=== PATIENT | male | born 1960 | race Caucasian/White ===

== ENCOUNTER 2016-09-13 06:59 | Day surgery (SDC) | payer BC ==
[2016-09-10 11:07] VITALS: BMI 23.8
[2016-09-13] MEDS ORDERED: MIDAZOLAM HCL 2 MG/2 ML SINGLE DOSE VIAL ONE ×2 (09:13→10:15)
[2016-09-13] MEDS ORDERED: ROPIVACAINE HCL 0.5% 30ML VIAL ONE (09:13)
[2016-09-13] MEDS ORDERED: PROPOFOL 20 ML ONE (10:15)
[2016-09-13] MEDS ORDERED: ceFAZolin SODIUM 1 GM VIAL ONE (10:23)
[2016-09-13] MEDS ORDERED: ONDANSETRON 4 MG/2 ML VIAL ONE (11:08)
[2016-09-13] MEDS ORDERED: DEXAMETHASONE SOD PHOSPHATE 4 MG/1 ML VIAL ONE (11:08)
[2016-09-13] MEDS ORDERED: oxyCODONE HCL 5 MG TABLET PO PRN (11:20)
[2016-09-13] MEDS ORDERED: LACTATED RINGERS SOLUTION 1,000 ML IV SCH (11:30)
[2016-09-13 13:12] VITALS: TEMP 98.3
[2016-09-13 13:13] VITALS: BP 121/71; PULSE 62
[2016-09-13] MEDS ORDERED: PROMETHAZINE HCL 25 MG/1 ML VIAL IVPUSH PRN (13:47)
[2016-09-13] MEDS ORDERED: ONDANSETRON 4 MG/2 ML VIAL IVPUSH PRN (13:47)
--- NOTE | 2016-09-16 06:02 | OP ---
DATE OF OPERATION: 09/13/2016 SURGEON: Kaiden Peñaloza M.D. [employer] ARCHITECT: Latrell Fairchild PREOPERATIVE DIAGNOSIS: 1. Right shoulder rotator cuff tear. 2. Right shoulder impingement syndrome. 3. Right shoulder acromioclavicular joint disease. 4. Right shoulder superior labral anterior posterior synovitis. POSTOPERATIVE DIAGNOSIS: 1. Right shoulder rotator cuff tear. 2. Right shoulder impingement syndrome. 3. Right shoulder acromioclavicular joint disease. 4. Right shoulder superior labral anterior posterior synovitis. PROCEDURE: 1. Right shoulder arthroscopy with arthroscopic rotator cuff repair. 2. Right shoulder arthroscopy with subacromial decompression. 3. Right shoulder arthroscopy resection distal clavicle acromioclavicular joint. 4. Right shoulder arthroscopy debridement/major. CPT CODES: 46931, 61957, 25063, 90272. FINDINGS: 1. Partial long head biceps tear 10%. 2. Full thickness rotator cuff tear anterior supraspinatus. 3. Central grade 2 cartilage glenoid. 4. One to two cartilage injury humerus anterior medial. 5. Thicken scar subacromial space. 6. Type 2 acromion with anterolateral spurring. 7. Inferior spur, mild acromioclavicular joint disease. Repair of type 2 mattress sutures were placed into the supraspinatus and secured to bleeding bone bed using the opos technique. PROCEDURE: Informed consent was obtained. The patient was taken to the operating room where the upper extremity was prepped and draped in a sterile fashion. The shoulder was manipulated for a full range of motion. Posterior incision portal was made and directed to glenohumeral joint. Under direct visualization, an anterior incision and portal was made. Extensive synovitis, as well as chondral injuries throughout the glenohumeral joint were dbrided and removed. Any identified labral injuries, including superior labral tear, anterior and posterior, and anterior labrum torn portions were removed as well. Rotator cuff was visualized and noted to have full-thickness tear. The edges were debrided. Posterior incision portal was redirected to subacromial space where a lateral incision portal was made. Excessive and thickened scar tissue noted throughout the subacromial space, including bursal and scar tissue, were removed. The type 2 acromion was converted into a flattened type 1 using a thomas for subacromial decompression. Distal inferior spur at the distal clavicle was also dbrided with the use of accessory portal in the AC joint. The edges of the rotator cuff were identified. Sutures were placed into the rotator cuff and secured using anchors throughout the greater tuberosity. Prior to securing, a bleeding bed was made using a small thomas, creating a bleeding surface of the rotator cuff insertion. The shoulder was then drained. A single suture as placed on all portals and a sterile dressing was placed. The patient was transferred to the recovery room without complication. KAIDEN PEÑALOZA M.D. [id number] MTDD
--- NOTE | 2016-09-16 13:25 | PATH ---
Surgical Pathology Report Patient Name: VANESA COTO Med. Rec. #: [id number] /Age/Gender: 1960 (Age: 55) / M Account: [id number] Location: [facility] AMBULATORY Taken: 09/13/2016 Received: 09/13/2016 Reported: 09/16/2016 Physicians: Kaiden Gould M.D. Specimen(s) Received RIGHT SHOULDER SHAVING Clinical History Right rotator cuff tear Final Diagnosis RIGHT SHOULDER, ARTHROSCOPIC SHAVING: PORTIONS OF SYNOVIUM, CARTILAGE, SKELETAL MUSCLE AND BONE CONSISTENT WITH ARTHROSCOPIC SHAVINGS. Electronically Signed Theron Martinez M.D. Gross Description Received in formalin, labeled "right shoulder shavings," is a 4.0 x 2.8 x 0.3 cm. aggregate of rodriguez-yellow soft tissue fragments. A inbound sales representative portion is submitted in one cassette. /09/13/201609/13/2016
== END 2016-09-13 12:55 | disposition home or self-care (01) ==
LOC: FASU 06:59
PROVIDERS: ATTEND Orthopaedic Surgery
PROC: 0RNJ4ZZ Release Right Shoulder Joint, Percutaneous Endoscopic Approach (ICD-10-PCS; 2016-09-13)
PROC: 0PB94ZZ Excision of Right Clavicle, Percutaneous Endoscopic Approach (ICD-10-PCS; 2016-09-13)
PROC: 0RBJ4ZZ Excision of Right Shoulder Joint, Percutaneous Endoscopic Approach (ICD-10-PCS; 2016-09-13)
PROC: 0LB14ZZ Excision of Right Shoulder Tendon, Percutaneous Endoscopic Approach (ICD-10-PCS; principal; 2016-09-13 09:00)
DX: M75.101 Unspecified rotator cuff tear or rupture of right shoulder, not specified as traumatic (principal); M75.41 Impingement syndrome of right shoulder; M19.011 Primary osteoarthritis, right shoulder; M65.811 Other synovitis and tenosynovitis, right shoulder
CPT/HCPCS: 88304-TC; 94760

== ENCOUNTER 2016-10-16 11:52 | Inpatient (IN) | payer BC ==
[2016-10-16 11:58] VITALS: BMI 23.8
--- NOTE | 2016-10-16 12:10 | PDOC ---
History of Present Illness - General Chief Complaint: Pain, Acute Stated Complaint: LEFT RIB CAGE PAIN Time Seen by Provider: 10/16/16 12:02 - History of Present Illness Initial Comments: 10/16/16 16:57 Chief complaint: Chest pain History of present illness: Patient complains of left lateral chest pain since Friday, which appears to be worsening. The pain is pleuritic in nature, becoming more severe with deep inspiration. There is no sensitivity to the ribs or chest wall in no trauma or other injury. He has had no URI symptoms or cough , suggestive of a possible respiratory infection Review of systems: As above. In addition, no abdominal pain, nausea, vomiting, diarrhea, hematemesis, melena, bloody stool, headache, sore throat, URI symptoms , cough, or shortness of breath. Remainder systems reviewed and found to be negative. No recent swelling or pain in the calves or thighs, no recent travel, and no leg trauma Past medical history: Recent rotator cuff surgery 5 weeks ago, undergoing rehabilitation. General anesthesia at that time. Questionable DVT of the left leg approximately one year ago, treated with aspirin only.,, Uses eyedrops. Elevated cholesterol, on Zocor Social history: No tobacco alcohol or nonprescription drugs. Limited by recent rotator cuff surgery but otherwise active Family history: Reviewed and noncontributory including blood clots, CVA, [place], early coronary artery disease, or cancer Physical exam: Alert and oriented 3, well-developed well-nourished, moderate distress due to pain with inspiration left lateral lower chest. Afebrile, vital signs normal with O2 sat of 95% HEENT clear Neck supple without bruit mass or nodes Chest clear to P&A with full breath sounds bilaterally, no dullness to percussion, however there is splinting with deep inspiration due to pain on the left No chest wall deformity or tenderness CV S1 and S2 distant without murmur rub or gallop pulses full and symmetric no JVD or edema Abdomen nondistended, bowel sounds normal, soft without mass tenderness or organomegaly Extremities no CCE there is no posterior calf swelling or tenderness. There is no superficial venous distention. Skin clear, no rash, adequate turgor and wet mucous membranes Neurological intact Impression: Pleuritic chest pain, possible pneumonia or bronchitis, possible musculoskeletal, possible pulmonary embolus Plan: Labs and x-ray, further evaluation depending on results Past History - Past Medical History Allergies/Adverse Reactions: Allergies Allergy/AdvReac Type Severity Reaction Status Date / Time No Known Allergies Allergy Verified 10/16/16 12:07 Home Medications: Ambulatory Orders Brimonidine Tartrate [Alphagan 0.15% -] 1 drop OS BID 09/10/16 Dorzolamide HCl/Timolol Maleat [Cosopt Eye Drops] 1 drop OS BID 09/10/16 Simvastatin [Zocor -] 40 mg PO HS 09/10/16 Anemia: No Asthma: No Cancer: No Cardiac Disorders: No CVA: No COPD: No CHF: No Dementia: No Diabetes: No GI Disorders: No Disorders: No HTN: No Hypercholesterolemia: Yes Liver Disease: No Seizures: No Thyroid Disease: No - Surgical History Abdominal Surgery: Yes (Bilateral Inguinal Hernia Repair) Appendectomy: No Cardiac Surgery: No Cholecystectomy: No Lung Surgery: No Neurologic Surgery: No Orthopedic Surgery: No - Psycho/Social/Smoking Cessation Hx Suicidal Ideation: No Smoking History: Never smoked Information on smoking cessation initiated: No Hx Alcohol Use: Yes (SOCIALLY) Drug/Substance Use Hx: No Substance Use Type: None Hx Substance Use Treatment: No *Physical Exam - Vital Signs Last Vital Signs Temp Pulse Resp BP Pulse Ox 99.8 F H 121 H 20 141/92 95 10/16/16 11:55 10/16/16 11:55 10/16/16 11:55 10/16/16 11:55 10/16/16 11:55 ED Treatment Course - LABORATORY CBC & Chemistry Diagram: 10/16/16 12:26 10/16/16 12:20 Medical Decision Making - Medical Decision Making 10/16/16 15:41 CTA reveals pulmonary embolus, consolidation, and effusion at the left base. Rectal exam was performed. No masses or tenderness. Stool medium brown, sent for guaiac. 10/16/16 16:56 Stool is guaiac negative. Spoke with the hospitalist. To admit to telemetry at [facility] Patient request initiated. *DC/Admit/Observation/Transfer Diagnosis at time of Disposition: Pulmonary embolus with infarction - Discharge Dispostion Admit: Yes
[2016-10-16 12:30] LABS: EOSINOPHIL 0.1 % (0-4.5)
[2016-10-16 12:35] LABS: BASOPHIL 3.2 % (0-2.0); MCH 31.2 pg (25.7-33.7); MCHC 34.2 g/dl (32.0-35.9); MEAN CELL VOLUME 91.2 fl (80-96); NEUTROPHILS 70.3 % (42.8-82.8); PLATELET COUNT 241 K/MM3 (134-434); RDW 12.6 % (11.9-15.9); WHITE BLOOD COUNT 9.7 K/mm3 (4.0-10.8)
[2016-10-16] MEDS ORDERED: SODIUM CHLORIDE 1,000 ML IV STA (12:49)
[2016-10-16 12:52] LABS: CPK(DFH) 42 IU/L (38-174)
[2016-10-16 12:53] LABS: ALBUMIN 3.8 g/dl (3.5-5.0); ALK PHOS 50 U/L (32-92); ANION GAP 9 (8-16); BILIRUBIN,TOTAL 0.7 mg/dl (0.2-1.0); CALCIUM 9.4 mg/dl (8.4-10.2); CO2 26 mmol/L (22-28); CREATININE 0.9 mg/dl (0.6-1.3); GLUCOSE,RANDOM 115 mg/dl (74-106); SGOT/AST 17 U/L (10-42); SGPT/ALT 21 U/L (10-40); TOT PROT 6.7 g/dl (6.4-8.3)
[2016-10-16 14:05] LABS: TROPONIN I (DFP) < 0.03 ng/ml (0.03-0.50)
--- NOTE | 2016-10-16 14:25 | EKG ---
Test Reason : Blood Pressure : / mmHG Vent. Rate : 119 BPM Atrial Rate : 119 BPM P-R Int : 162 ms QRS Dur : 074 ms QT Int : 308 ms P-R-T Axes : 026 002 028 degrees QTc Int : 433 ms SINUS TACHYCARDIA POSSIBLE LEFT ATRIAL ENLARGEMENT BORDERLINE ECG NO PREVIOUS ECGS AVAILABLE Confirmed by SHANIQUE WARNER MD ([id number]) on 10/16/2016 2:25:16 PM Referred By: JARRETT ZAVALA Confirmed By:SHANIQUE WARNER MD
[2016-10-16] MEDS ORDERED: HEPARIN NA (PORCINE) 5,000 UNITS/ML 1ML VIAL IVPUSH PRN (15:30)
[2016-10-16] MEDS ORDERED: HEPARIN INFUSION - 500 ML IVPB ONE ×2 (15:36→20:31)
[2016-10-16] MEDS: HEPARIN INFUSION - 500 ML IVPB SCH (15:50)
[2016-10-16] MEDS ORDERED: HEPARIN NA (PORCINE) 5,000 UNITS/ML 1ML VIAL IVPUSH ONE (16:02)
[2016-10-16 17:15] LABS: ARTERIAL BLOOD GAS pH 7.42 (7.35-7.45)
[2016-10-16 17:16] LABS: ALLENS TEST POSITIVE; ART PUNCT SITE LEFT RADIAL; ARTERIAL BLD GAS O2 SATURATION 94.2 % (90-98.9); ARTERIAL BLOOD GAS BASE EXCESS 0.5 meq/l (-2-2); ARTERIAL BLOOD GAS HCO3 24.4 meq/L (22-26); METHEMOGLOBIN 0.5 % (0.4-1.5); PT. ON O2? NO
[2016-10-16 17:17] LABS: ARTERIAL BLOOD GAS PO2 68.1 mmHg (80-100); TYPE OF O2 ROOM AIR
--- NOTE | 2016-10-16 20:53 | PN ---
<Chapo Valenzuela - Last Filed: 10/16/16 20:52> Teaching Attending Note Name of Resident: Yogi Carrillo ATTENDING PHYSICIAN STATEMENT I saw and evaluated the patient. I reviewed the resident's note and discussed the case with the resident. I agree with the resident's findings and plan as documented. SUBJECTIVE: OBJECTIVE: ASSESSMENT AND PLAN: <Pam Mar - Last Filed: 10/16/16 23:34> Teaching Attending Note ATTENDING PHYSICIAN STATEMENT I saw and evaluated the patient. I reviewed the resident's note and discussed the case with the resident. I agree with the resident's findings and plan as documented. SUBJECTIVE: 56 yo M with a PMHx of rotator cuff surgery 5 weeks ago, one DVT of L leg possibly 1 year ago, HLD presents with chest pain on L side and pain with inspiration. Patient also endorses head pain when he sneezes, coughs and during deep inspiration. Patient also endorses fever of 100 degrees at home. OBJECTIVE: Last Vital Signs Temp Pulse Resp BP Pulse Ox 98.1 F 108 H 24 132/87 97 10/16/16 17:55 10/16/16 19:36 10/16/16 19:36 10/16/16 19:36 10/16/16 19:36 GENERAL: Awake, alert, and fully oriented, in no acute distress HEENT: Atraumatic. PERRLA, EOMI. Moist mucosa. No JVD LUNGS: No distress, speaks full sentences, decreased breath sounds L base. HEART: Regular rate and rhythm, normal S1 and S2, no murmurs, rubs or gallops, peripheral pulses normal and equal bilaterally. ABDOMEN: Soft, nontender, normoactive bowel sounds. No guarding, no rebound. No masses EXTREMITIES: Sling on R arm, no edema. No clubbing or Cyanosis. NEUROLOGICAL: Cranial nerves II through XII grossly intact. Normal speech, normal gait, no focal sensorimotor deficits SKIN: Warm, Dry, normal turgor, no rashes or lesions noted. CBCD WBC 9.7 K/mm3 (4.0-10.8) 10/16/16 12:26 RBC 5.04 M/mm3 (4.00-5.60) 10/16/16 12:26 Hgb 15.7 GM/dl (11.7-16.9) 10/16/16 12:26 Hct 45.9 % (35.4-49) 10/16/16 12:26 MCV 91.2 fl (80-96) 10/16/16 12:26 MCHC 34.2 g/dl (32.0-35.9) 10/16/16 12:26 RDW 12.6 % (11.9-15.9) 10/16/16 12:26 Plt Count 241 K/MM3 (134-434) 10/16/16 12:26 MPV 8.0 fl (7.5-11.1) 10/16/16 12:26 CMP Sodium 138 mmol/L (136-145) 10/16/16 12:20 Potassium 4.4 mmol/L (3.5-5.1) 10/16/16 12:20 Chloride 103 mmol/L (98-107) 10/16/16 12:20 Carbon Dioxide 26 mmol/L (22-28) 10/16/16 12:20 Anion Gap 9 (8-16) 10/16/16 12:20 BUN 13 mg/dl (7-18) 10/16/16 12:20 Creatinine 0.9 mg/dl (0.6-1.3) 10/16/16 12:20 Creat Clearance w eGFR > 60 (>60) 10/16/16 12:20 Calcium 9.4 mg/dl (8.4-10.2) 10/16/16 12:20 Total Bilirubin 0.7 mg/dl (0.2-1.0) 10/16/16 12:20 AST 17 U/L (10-42) 10/16/16 12:20 ALT 21 U/L (10-40) 10/16/16 12:20 Alkaline Phosphatase 50 U/L (32-92) 10/16/16 12:20 Total Protein 6.7 g/dl (6.4-8.3) 10/16/16 12:20 Albumin 3.8 g/dl (3.5-5.0) 10/16/16 12:20 CTA Shows LL PE and LL consolidation ASSESSMENT AND PLAN: 56 yo M with a PMHx of rotator cuff surgery 5 weeks ago, one DVT of L leg possibly 1 year ago, HLD presents with L chest pain found to have a PE and LLL pneumonia. 1. ) PE -Heparin GTT -Bridge to coumadin -Once 6 weeks after treatment, consider studies for coagulopathy -Follow up PT, INR, PTT -Repeat CBC -Echo 2.) LLL pneumonia -Levaquin -Sputum culture 3.) HLD -Continue Zocor DVT ppx -On heparin GTT Documentation is prepared by Pam Mar acting as biomedical engineering director for Chapo Valenzuela D.O.
--- NOTE | 2016-10-16 21:39 | HP ---
CHIEF COMPLAINT: PCP: HISTORY OF PRESENT ILLNESS: 56 y/o M w/PMH of HLD, questionable DVT in L leg 1 year ago, glaucoma presents to ER with L lateral chest wall pain. Pt states pain started all of a sudden on Friday and has remained the same since. He took 8 aspirin yesterday to try and alleviate pain but did not help. He recently had R rotator cuff surgery done and was doing physical therapy for and thought he may have strained some muscles and felt that may have been the cause of his pain and did not seek help at the time. He states the pain is worse with laying down, deep inspiration, coughing, and sneezing. He also c/o labored breathing since Friday and reports a fever of 100 F yesterday. He has been more inactive lately after the shoulder surgery. He states he had DVT after hurting his ankle last year in swimming pool but was told he only needed aspirin. He reports his symptoms have improved mildly at this time. He denies N/V, light-headedness, dizziness, change in bowel movement, dysuria, abd pain. ER course was notable for: (1) CTA chest, CXR, heparin drip (2) (3) PAST MEDICAL HISTORY: Glaucoma, HLD PAST SURGICAL HISTORY: Cataract surgery, R rotator cuff repair, Ventral hernia repair Social History: Smoking: denies Alcohol: denies Drugs: denies Family History: Non-contributory family history Allergies No Known Allergies Allergy (Verified 10/16/16 12:07) HOME MEDICATIONS: Home Medications Medication Instructions Recorded Brimonidine Tartrate [Alphagan 1 drop OS BID 09/10/16 0.15% -] Dorzolamide HCl/Timolol Maleat 1 drop OS BID 09/10/16 [Cosopt Eye Drops] Simvastatin [Zocor -] 40 mg PO HS 09/10/16 REVIEW OF SYSTEMS CONSTITUTIONAL: +fever Absent: chills, diaphoresis, generalized weakness, malaise, loss of appetite, weight change HEENT: Absent: throat pain, throat swelling, difficulty swallowing, mouth swelling, ear pain, eye pain CARDIOVASCULAR: +chest pain Absent: syncope, palpitations, irregular heart rate, lightheadedness, peripheral edema RESPIRATORY: Absent: cough, shortness of breath, dyspnea with exertion, orthopnea, wheezing, stridor, hemoptysis GASTROINTESTINAL: Absent: abdominal pain, abdominal distension, nausea, vomiting, diarrhea, constipation, melena, hematochezia GENITOURINARY: Absent: dysuria, hematuria MUSCULOSKELETAL: Absent: myalgia, arthralgia, joint swelling, back pain, neck pain NEUROLOGIC: +headache Absent: focal weakness or paresthesias, dizziness, unsteady gait PSYCHIATRIC: Absent: anxiety, depression PHYSICAL EXAMINATION GENERAL: Awake, alert, and fully oriented, in no acute distress. HEAD: Normal with no signs of trauma. EYES: extraocular movements intact, sclera anicteric, conjunctiva clear. No lid lag. EARS, NOSE, THROAT: Ears normal, nares patent, Moist mucous membranes. NECK: Normal range of motion, supple LUNGS: Decreased breath sounds at L base. No wheezes. No accessory muscle use. HEART: Regular rate and rhythm, normal S1 and S2 without murmur, rub or gallop. ABDOMEN: Soft, nontender, not distended, normoactive bowel sounds, no guarding, no rebound, no masses. No hepatomegaly or splenomegaly. MUSCULOSKELETAL: Normal range of motion at all joints. No bony deformities or tenderness. No CVA tenderness. LOWER EXTREMITIES: warm, well-perfused. No calf tenderness. No peripheral edema. NEUROLOGICAL: Normal speech. Gait not observed. PSYCHIATRIC: Cooperative. Good eye contact. Appropriate mood and affect. SKIN: Warm, dry Vital Signs Temperature 99.2 F 10/16/16 20:25 Pulse Rate 99 H 10/16/16 20:25 Respiratory Rate 20 10/16/16 20:25 Blood Pressure 151/93 10/16/16 20:25 O2 Sat by Pulse Oximetry (%) 98 10/16/16 20:25 CBCD WBC 9.7 K/mm3 (4.0-10.8) 10/16/16 12:26 RBC 5.04 M/mm3 (4.00-5.60) 10/16/16 12:26 Hgb 15.7 GM/dl (11.7-16.9) 10/16/16 12:26 Hct 45.9 % (35.4-49) 10/16/16 12:26 MCV 91.2 fl (80-96) 10/16/16 12:26 MCHC 34.2 g/dl (32.0-35.9) 10/16/16 12:26 RDW 12.6 % (11.9-15.9) 10/16/16 12:26 Plt Count 241 K/MM3 (134-434) 10/16/16 12:26 MPV 8.0 fl (7.5-11.1) 10/16/16 12:26 CMP Sodium 138 mmol/L (136-145) 10/16/16 12:20 Potassium 4.4 mmol/L (3.5-5.1) 10/16/16 12:20 Chloride 103 mmol/L (98-107) 10/16/16 12:20 Carbon Dioxide 26 mmol/L (22-28) 10/16/16 12:20 Anion Gap 9 (8-16) 10/16/16 12:20 BUN 13 mg/dl (7-18) 10/16/16 12:20 Creatinine 0.9 mg/dl (0.6-1.3) 10/16/16 12:20 Creat Clearance w eGFR > 60 (>60) 10/16/16 12:20 Random Glucose 115 mg/dl (74-106) H 10/16/16 12:20 Calcium 9.4 mg/dl (8.4-10.2) 10/16/16 12:20 Total Bilirubin 0.7 mg/dl (0.2-1.0) 10/16/16 12:20 AST 17 U/L (10-42) 10/16/16 12:20 ALT 21 U/L (10-40) 10/16/16 12:20 Alkaline Phosphatase 50 U/L (32-92) 10/16/16 12:20 Total Protein 6.7 g/dl (6.4-8.3) 10/16/16 12:20 Albumin 3.8 g/dl (3.5-5.0) 10/16/16 12:20 CARDIAC ENZYMES Creatine Kinase 42 IU/L (38-174) 10/16/16 12:20 Troponin I < 0.03 ng/ml (0.03-0.50) L 10/16/16 12:20 FOBT - negative Imaging: CTA Chest: pulmonary embolus, consolidation, and effusion at the left base. EKG: Sinus tachy @ 119bpm, possible L atrial enlargement, borderline ecg, no previous ekg Active Medications Atorvastatin Calcium (Lipitor -) 20 mg PO HS CHING Last Admin: 10/16/16 23:15 Dose: 20 mg Heparin Sodium (Porcine) (Heparin -) 1,000 unit IVPUSH PRN PRN PRN Reason: Heparin Heparin Sodium (Porcine) (Heparin -) 5,000 unit IVPUSH PRN PRN PRN Reason: Heparin Heparin Sodium/Dextrose (Heparin Infusion -) 500 mls @ 20 mls/hr IVPB TITR CHING ; 1,000 UNITS/HR PRN Reason: Protocol Last Admin: 10/16/16 15:50 Dose: 20 mls/hr Levofloxacin (Levaquin) 750 mg PO DAILY@0600 [facility] ASSESSMENT/PLAN: 56 y/o M w/PMH of HLD, questionable DVT in L leg 1 year ago, glaucoma presents to ER with L lateral chest wall pain worsened with deep inspiration, laying down. Found to have PE on CTA chest. -Submassive PE -Heparin drip -monitor PTT, CBC, FOBT -O2 supplementation to keep O2 sat >90% -Consider ECHO in AM -Will need NoAC if covered by insurance, wafarin if not -Consider outpatient heme workup 6 weeks after discharge for coag studies -Possible LLL PNA -consolidation seen on CTA in LLL -will treat with levaquin 750 mg po qd -CXR in AM -HLD -c/w simvastatin 40 mg po qhs -DVT ppx -on heparin drip -FEN -no fluids -monitor lytes -Dispo: -Admit to tele Visit type - Emergency Visit Emergency Visit: Yes ED Registration Date: 10/16/16 Care time: The patient presented to the Emergency Department on the above date and was hospitalized for further evaluation of their emergent condition. - New Patient This patient is new to me today: Yes Date on this admission: 10/21/16 - Critical Care Critical Care patient: No
[2016-10-16] MEDS: ATORVASTATIN CA 20 MG TABLET (FP) PO SCH (23:15)
[2016-10-17] MEDS ORDERED: LEVOFLOXACIN 750 MG TABLET PO SCH (06:00)
[2016-10-17 07:28] LABS: BASOPHIL 0.5 % (0-2.0); EOSINOPHIL 0.3 % (0-4.5); MCH 30.8 pg (25.7-33.7); MCHC 33.8 g/dl (32.0-35.9); MEAN CELL VOLUME 91.1 fl (80-96); MEAN PLT VOLUME 7.8 fl (7.5-11.1); NEUTROPHILS 66.2 % (42.8-82.8); PLATELET COUNT 207 K/MM3 (134-434); WHITE BLOOD COUNT 7.8 K/mm3 (4.0-10.0)
[2016-10-17 07:38] LABS: COCKROFT - GAULT 104.71; CREATININE 0.9 mg/dL (0.7-1.3)
--- NOTE | 2016-10-17 08:07 | PN ---
Physical Exam: SUBJECTIVE: Patient seen and examined at bed side this morning. States that he feels better than yesterday. Shortness of breath has improved. Has pain over the right shoulder where he recently had R rotator cuff surgery. Denies chest pain, palpitation, cough, abdominal pain, nausea or vomiting. Bowel/Bladder habit normal. Sleep/Appetite normal. Patient was admitted overnight. OBJECTIVE: Vital Signs Period Temp Pulse Resp BP Sys/Pascual Pulse Ox Last 24 Hr 99.6 F 93-94 20-20 125-131/73-75 GENERAL: The patient is lying in bed comfortably, awake, alert, and fully oriented, in no acute distress. HEAD: Normal with no signs of trauma. EYES: EOM intact, no pallor or icterus. ENT: Ears normal, moist mucous membranes. NECK:Supple. LUNGS: Breath sounds equal, breath sounds decreased on the left >right, no wheezes, no crackles, no accessory muscle use. HEART: Tachycardic, Regular rate and rhythm, S1, S2 without murmur. ABDOMEN: Soft, nontender, nondistended, normoactive bowel sounds, no guarding, no rebound, no hepatosplenomegaly, no masses. UPPER EXTREMITIES: Left: ROM +, 2+ pulses, warm, well-perfused, no edema. Right: Sling in place, range of motion limited, no erythema, non tender, 2+ pulses, warm, well-perfused, no edema. LOWER EXTREMITIES: 2+ pulses, warm, well-perfused, no edema. Lulu's sign negative. NEUROLOGICAL: Bulk/Tone normal, no facial droop, power 5/5, Cranial nerves II through XII grossly intact. Normal speech, gait not observed. PSYCH: Normal mood, normal affect. SKIN: Warm, dry, normal turgor, no rashes or lesions noted Laboratory Results - last 24 hr 10/16/16 10/17/16 10/17/16 21:30 05:35 05:35 WBC 7.8 RBC 4.69 Hgb 14.5 Hct 42.7 MCV 91.1 MCHC 33.8 RDW 13.0 Plt Count 207 MPV 7.8 Neutrophils % 66.2 Lymphocytes % 17.0 Monocytes % 16.0 H Eosinophils % 0.3 Basophils % 0.5 PTT (Actin FS) 55.3 H Sodium 139 Potassium 4.1 Chloride 101 Carbon Dioxide 27 Anion Gap 11 BUN 10 Creatinine 0.9 Random Glucose 100 Calcium 9.0 Active Medications Generic Name Dose Route Start Last Admin Trade Name Freq PRN Reason Stop Dose Admin Atorvastatin Calcium 20 mg 10/16/16 22:00 10/16/16 23:15 Lipitor - PO 20 mg HS CHING Administration Heparin Sodium (Porcine) 1,000 unit 10/16/16 15:30 Heparin - IVPUSH PRN PRN Heparin Heparin Sodium (Porcine) 5,000 unit 10/16/16 15:30 Heparin - IVPUSH PRN PRN Heparin Heparin Sodium/Dextrose 500 mls @ 20 mls/hr 10/16/16 15:30 10/16/16 15:50 Heparin Infusion - IVPB 20 mls/hr TITR CHING Administration Protocol 1,000 UNITS/HR Levofloxacin 750 mg 10/17/16 06:00 10/17/16 05:22 Levaquin PO 750 mg DAILY@0600 CHING Administration CTA 10/16/16: Left lower lobe pulmonary embolism. 2. Left lower lobe consolidation and small pleural effusion. 3. Right basilar atelectasis and trace pleural effusion. ASSESSMENT/PLAN: Patient is a 56 year old Male with significant PMH of Hyperlipidemia, questionable DVT in L leg one year ago, glaucoma presented to the ER with L lateral chest wall pain worsened with deep inspiration, laying down. # Pulmonary Embolism-likely provoked H/o Immobilization post R rotator cuff surgery- lays in bed for >12hrs/day Presented with pleuritic left lateral chest pain; shortness of breath, recent surgery, EKG: Sinus tachycardia with S1Q3T3 CTA: Left lower lobe pulmonary embolism. Admitted in telemetry, continuous cardiac monitoring, no acute changes noted On Heparin Drip Monitor PTT Oxygen therapy Echo-r/o right heart strain. Pulmonary consult appreciated # Community acquired pneumonia- Left lower lobe Seen in CTA IV Ceftriaxone 1 gm daily (Day 1) Sputum culture, blood culture pending # Right shoulder pain Likely due to recent rotatory cuff surgery Physical therapy R/O DVT-Duplex of the right extremity ordered # Left leg swelling Patient mentioned he had left leg swelling, but now it has resolved. However would like to r.o DVT-Duplex of lower ext ordered. # Hyperlipidemia Continue Simvastatin 40 mg po HS # FEN Not on IV fluids, can tolerate PO Electrolytes to be repeated tomorrow Cholesterol controlled diet # Prophyalxis For DVT-On Heparin Drip For GI- Not indicated # Code Status: Full Code # Dispo: Admitted in Telemetry. Duration of stay unknown. Illness, Investigation and Plan of care explained to the patient. He verbalized understanding. Case seen and discussed with Dr. Singh.
[2016-10-17] MEDS: HEPARIN INFUSION - 500 ML IVPB SCH ×2 (11:30→18:14)
[2016-10-17] MEDS: CEFTRIAXONE 50 ML IVPB SCH (11:44)
[2016-10-17] MEDS: AZITHROMYCIN IVPB 250 ML IVPB SCH (11:44)
--- NOTE | 2016-10-17 12:55 | CON.PULM ---
Consult Consult Specialty:: PULMONARY Referred by:: Dr. Singh Reason for Consultation:: PE - History of Present Illness Chief Complaint: chest pain, shortness of breath History of Present Illness: 56yo male with h/o hypercholesterolemia who presents with left sided chest pain and shortness of breath x 3 days. He reports a sharp, stabbing pain lower left side anterior axillary line worse with movement and lying down. His shortness of breath also started around then. He attributed the pain to a "muscle pull." Did report some left leg soreness yesterday as well. No significant cough but with slight subjective fever. Found to have a LLL PE on CTA in the ER. He had some trauma to his left ankle last year, seen by vascular who performed an ultrasound showing a distal ankle clot. Placed on ASA and compression stockings with resolution of clot on subsequent imaging. He did have a rotator cuff surgery 5 weeks ago and has been pretty sedentary since then. He is up to date on his colonoscopy, is not a smoker. No history of clots in the family. - History Source History Provided By: Patient, Medical Record Limitations to Obtaining History: No Limitations - Past Medical History Cardio/Vascular: Yes: Hyperlipdemia - Past Surgical History Additional Surgical History: left rotator cuff - Alcohol/Substance Use Hx Alcohol Use: Yes (SOCIALLY) - Smoking History Smoking history: Never smoked Home Medications - Allergies Allergies/Adverse Reactions: Allergies Allergy/AdvReac Type Severity Reaction Status Date / Time No Known Allergies Allergy Verified 10/16/16 12:07 - Home Medications Home Medications: Ambulatory Orders Brimonidine Tartrate [Alphagan 0.15% -] 1 drop OS BID 09/10/16 Dorzolamide HCl/Timolol Maleat [Cosopt Eye Drops] 1 drop OS BID 09/10/16 Simvastatin [Zocor -] 40 mg PO HS 09/10/16 Family Disease History - Family Disease History Other Family History: no history of VTE Review of Systems - Review of Systems Constitutional: reports: Fever. denies: Chills Eyes: denies: Recent Change in Vision HENT: denies: Nasal Congestion, Throat Pain Neck: denies: Stiffness, Tenderness Cardiovascular: reports: Chest Pain, Shortness of Breath. denies: Edema, Palpitations Respiratory: reports: Cough, SOB. denies: Hemoptysis, Wheezing Gastrointestinal: denies: Abdominal Pain, Nausea, Vomiting Genitourinary: denies: Dysuria, Hematuria Neurological: denies: Dizziness, Headache Endocrine: denies: Unexplained Weight Gain, Unexplained Weight Loss Physical Exam Vital Sings: Vital Signs Temperature 98.4 F 10/17/16 10:00 Pulse Rate 88 10/17/16 10:00 Respiratory Rate 20 10/17/16 10:00 Blood Pressure 150/86 10/17/16 10:00 O2 Sat by Pulse Oximetry (%) 98 10/17/16 09:55 Constitutional: Yes: No Distress, Calm Eyes: Yes: Conjunctiva Clear, EOM Intact HENT: Yes: Atraumatic, Normocephalic Neck: Yes: Supple, Trachea Midline Cardiovascular: Yes: Regular Rate and Rhythm Respiratory: Yes: Diminished (decreased breath sounds at the bases) ...Clubbing: No Gastrointestinal: Yes: Normal Bowel Sounds, Soft. No: Tenderness Edema: No Peripheral Pulses WNL: Yes Labs: CBC, BMP 10/17/16 05:35 10/17/16 05:35 ABG Results ABG pH 7.42 (7.35-7.45) 10/16/16 15:45 ABG pCO2 at Pt Temp 38.6 mmHg (35-45) 10/16/16 15:45 ABG pO2 at Pt Temp 68.1 mmHg (80-100) L 10/16/16 15:45 ABG HCO3 24.4 meq/L (22-26) 10/16/16 15:45 ABG O2 Sat (Measured) 94.2 % (90-98.9) 10/16/16 15:45 ABG O2 Content 18.6 % vol (15-22) 10/16/16 15:45 ABG Base Excess 0.5 meq/l (-2-2) 10/16/16 15:45 Imaging - Results Chest X-ray: Report Reviewed, Image Reviewed Cat Scan: Report Reviewed, Image Reviewed Assessment/Plan Acute LLL Pulmonary Embolism Pulmonary Infarct r/o Pneumonia Hypercholesterolemia - VTE likely provoked by prolonged immobilization, states he is in bed over 12 hrs/day - continue anticoagulation - echocardiogram to assess right heart function - LE dopplers as he had some right leg soreness yesterday - started on empiric antibiotics, findings on imaging more likely related to pulmonary infarct as it is the same segment where the clot is located, can d/c antibiotics if pt remains afebrile and with normal WBC - can start oral anticoagulation if no invasive procedures planned - will need anticoagulation for minimum 3 months - hypercoagulable work up as outpt Thank you for this consult Theron Frances MD
[2016-10-17] MEDS: ACETAMINOPHEN 325 MG TABLET (FP) PO PRN ×2 (14:55→21:57)
--- NOTE | 2016-10-17 20:22 | PN ---
Teaching Attending Note Name of Resident: Sunshine Crane ATTENDING PHYSICIAN STATEMENT I saw and evaluated the patient. I reviewed the resident's note and discussed the case with the resident. I agree with the resident's findings and plan as documented. SUBJECTIVE: Still c/o of having left sided chest pain but less than before. OBJECTIVE: Vital Signs Temperature 98.5 F 10/17/16 17:00 Pulse Rate 92 H 10/17/16 17:00 Respiratory Rate 20 10/17/16 17:00 Blood Pressure 129/80 10/17/16 17:00 O2 Sat by Pulse Oximetry (%) 98 10/17/16 09:55 CBCD WBC 7.8 K/mm3 (4.0-10.0) 10/17/16 05:35 RBC 4.69 M/mm3 (4.00-5.60) 10/17/16 05:35 Hgb 14.5 GM/dL (11.7-16.9) 10/17/16 05:35 Hct 42.7 % (35.4-49) 10/17/16 05:35 MCV 91.1 fl (80-96) 10/17/16 05:35 MCHC 33.8 g/dl (32.0-35.9) 10/17/16 05:35 RDW 13.0 % (11.9-15.9) 10/17/16 05:35 Plt Count 207 K/MM3 (134-434) 10/17/16 05:35 MPV 7.8 fl (7.5-11.1) 10/17/16 05:35 CMP Sodium 139 mmol/L (136-145) 10/17/16 05:35 Potassium 4.1 mmol/L (3.5-5.1) 10/17/16 05:35 Chloride 101 mmol/L (98-107) 10/17/16 05:35 Carbon Dioxide 27 mmol/L (21-32) 10/17/16 05:35 Anion Gap 11 (8-16) 10/17/16 05:35 BUN 10 mg/dL (7-18) 10/17/16 05:35 Creatinine 0.9 mg/dL (0.7-1.3) 10/17/16 05:35 Creat Clearance w eGFR > 60 (>60) 10/16/16 12:20 Random Glucose 100 mg/dL (74-106) 10/17/16 05:35 Calcium 9.0 mg/dL (8.5-10.1) 10/17/16 05:35 Total Bilirubin 0.7 mg/dl (0.2-1.0) 10/16/16 12:20 AST 17 U/L (10-42) 10/16/16 12:20 ALT 21 U/L (10-40) 10/16/16 12:20 Alkaline Phosphatase 50 U/L (32-92) 10/16/16 12:20 Total Protein 6.7 g/dl (6.4-8.3) 10/16/16 12:20 Albumin 3.8 g/dl (3.5-5.0) 10/16/16 12:20 CARDIAC ENZYMES Creatine Kinase 42 IU/L (38-174) 10/16/16 12:20 Troponin I < 0.03 ng/ml (0.03-0.50) L 10/16/16 12:20 Current Medications Generic Name Dose Route Start Last Admin Trade Name Dennis PRN Reason Stop Dose Admin Acetaminophen 650 mg 10/17/16 14:16 10/17/16 14:55 Tylenol - PO 650 mg Q6H PRN Administration FEVER OR PAIN Atorvastatin Calcium 20 mg 10/16/16 22:00 10/16/16 23:15 Lipitor - PO 20 mg HS CHING Administration Heparin Sodium (Porcine) 1,000 unit 10/16/16 15:30 Heparin - IVPUSH PRN PRN Heparin Heparin Sodium (Porcine) 5,000 unit 10/16/16 15:30 10/17/16 11:44 Heparin - IVPUSH 5,000 unit PRN PRN Administration Heparin Heparin Sodium/Dextrose 500 mls @ 20 mls/hr 10/16/16 15:30 10/17/16 18:14 Heparin Infusion - IVPB 23 mls/hr TITR CHING Administration Protocol 1,000 UNITS/HR Ceftriaxone Sodium 50 mls @ 100 mls/hr 10/17/16 10:00 10/17/16 11:44 Rocephin 1gm Ivpb (Pre-Docked) IVPB 100 mls/hr DAILY CHING Administration Azithromycin 250 mls @ 250 mls/hr 10/17/16 10:00 10/17/16 11:44 Zithromax 500mg Ivpb (Pre-Docked) IVPB 250 mls/hr DAILY CHING Administration Home Medications Medication Instructions Recorded Brimonidine Tartrate [Alphagan 1 drop OS BID 09/10/16 0.15% -] Dorzolamide HCl/Timolol Maleat 1 drop OS BID 09/10/16 [Cosopt Eye Drops] Simvastatin [Zocor -] 40 mg PO HS 09/10/16 EKG: Sinus tachycardia with S1Q3T3 CTA: Left lower lobe pulmonary embolism. ASSESSMENT AND PLAN: 56 yo M with a PMHx of rotator cuff surgery 5 weeks ago, one DVT of L leg possibly 1 year ago, HLD presents with chest pain on L side and pain with inspiration. Patient also endorses head pain when he sneezes, coughs and during deep inspiration. Patient also endorses fever of 100 degrees at home. # Acute PE provoked ; on heparin drip as per protocol, ordered duplex of LE, And RUE. Echo. orfered to r/o right heart strain. giving hx of Immobilization post R rotator cuff surgery ( recent surgery)- lays in bed for >12hrs/day # RUE s/p rotator cuff sx recently # Community acquired pneumonia- Left lower lobe Seen in CTA ON IV Ceftriaxone 1 gm daily ,AND ZITHROMAX 500MG iv , Sputum culture, blood culture pending # Right shoulder pain DUE TO recent surgery, Physical therapy; US of right UE and lower extremities ordered to r/o DVT # Left leg swelling Duplex ordered of LEs r/o DVT # Hyperlipidemia continue Simvastatin 40 mg po HS # DVT Px: Heparin Drip
[2016-10-17] MEDS ORDERED: diphenhydrAMINE HCL 25 MG CAPSULE (FP) PO ONE (20:56)
[2016-10-17] MEDS: ATORVASTATIN CA 20 MG TABLET (FP) PO SCH (21:57)
[2016-10-18 07:34] LABS: MCH 30.8 pg (25.7-33.7); MCHC 33.6 g/dl (32.0-35.9); MEAN CELL VOLUME 91.6 fl (80-96); MEAN PLT VOLUME 7.8 fl (7.5-11.1); PLATELET COUNT 241 K/MM3 (134-434); RDW 13.2 % (11.9-15.9); WHITE BLOOD COUNT 6.8 K/mm3 (4.0-10.0)
[2016-10-18 07:58] LABS: CALCIUM 9.6 mg/dL (8.5-10.1); COCKROFT - GAULT 104.71; CREATININE 0.9 mg/dL (0.7-1.3)
--- NOTE | 2016-10-18 09:04 | PN ---
Physical Exam: SUBJECTIVE: Patient seen and examined at bed side. Feels much better than yesterday, shortness of breath has improved. Patient mentioned he did well with PT yesterday, was able move the right shoulder better. Denies chest pain, cough , palpitation, abdominal pain, nausea or vomiting. Bowel/Bladder habit normal. Sleep/Appetite normal. OBJECTIVE: Vital Signs Period Temp Pulse Resp BP Sys/Pascual Pulse Ox Last 24 Hr 98.3 F-98.8 F 71-92 20-20 116-150/73-86 96-98 GENERAL: The patient is lying in bed comfortably, awake, alert, and fully oriented, in no acute distress. HEAD: Normal with no signs of trauma. EYES: EOM intact, no pallor or icterus. ENT: Ears normal, moist mucous membranes. NECK:Supple. LUNGS: Breath sounds equal, breath sounds decreased on the left >right, no wheezes, no crackles, no accessory muscle use. HEART: Tachycardic, Regular rate and rhythm, S1, S2 without murmur. ABDOMEN: Soft, nontender, nondistended, normoactive bowel sounds, no guarding, no rebound, no hepatosplenomegaly, no masses. UPPER EXTREMITIES: Left: ROM +, 2+ pulses, warm, well-perfused, no edema. Right: Sling in place, range of motion limited, no erythema, non tender, 2+ pulses, warm, well-perfused, no edema. LOWER EXTREMITIES: 2+ pulses, warm, well-perfused, no edema. Lulu's sign negative. NEUROLOGICAL: Bulk/Tone normal, no facial droop, power 5/5, Cranial nerves II through XII grossly intact. Normal speech, gait not observed. PSYCH: Normal mood, normal affect. SKIN: Warm, dry, normal turgor, no rashes or lesions noted Laboratory Results - last 24 hr 10/17/16 10/17/16 10/18/16 05:35 17:00 05:38 WBC 6.8 RBC 4.71 Hgb 14.5 Hct 43.1 MCV 91.6 MCHC 33.6 RDW 13.2 Plt Count 241 MPV 7.8 PTT (Actin FS) 39.2 H 61.4 H D Sodium Potassium Chloride Carbon Dioxide Anion Gap BUN Creatinine Random Glucose Calcium 10/18/16 10/18/16 05:38 05:38 WBC RBC Hgb Hct MCV MCHC RDW Plt Count MPV PTT (Actin FS) 41.6 H D Sodium 140 Potassium 4.2 Chloride 100 Carbon Dioxide 29 Anion Gap 11 BUN 14 D Creatinine 0.9 Random Glucose 97 Calcium 9.6 Active Medications Generic Name Dose Route Start Last Admin Trade Name Freq PRN Reason Stop Dose Admin Acetaminophen 650 mg 10/17/16 14:16 10/17/16 21:57 Tylenol - PO 650 mg Q6H PRN Administration FEVER OR PAIN Atorvastatin Calcium 20 mg 10/16/16 22:00 10/17/16 21:57 Lipitor - PO 20 mg HS CHING Administration Heparin Sodium (Porcine) 1,000 unit 10/16/16 15:30 Heparin - IVPUSH PRN PRN Heparin Heparin Sodium (Porcine) 5,000 unit 10/16/16 15:30 10/17/16 11:44 Heparin - IVPUSH 5,000 unit PRN PRN Administration Heparin Heparin Sodium/Dextrose 500 mls @ 20 mls/hr 10/16/16 15:30 10/17/16 18:14 Heparin Infusion - IVPB 23 mls/hr TITR CHING Administration Protocol 1,000 UNITS/HR Ceftriaxone Sodium 50 mls @ 100 mls/hr 10/17/16 10:00 10/17/16 11:44 Rocephin 1gm Ivpb (Pre-Docked) IVPB 100 mls/hr DAILY CHING Administration Azithromycin 250 mls @ 250 mls/hr 10/17/16 10:00 10/17/16 11:44 Zithromax 500mg Ivpb (Pre-Docked) IVPB 250 mls/hr DAILY CHING Administration ASSESSMENT/PLAN: Patient is a 56 year old Male with significant PMH of Hyperlipidemia, questionable DVT in L leg one year ago, glaucoma presented to the ER with L lateral chest wall pain worsened with deep inspiration, laying down. # Pulmonary Embolism-likely provoked H/o Immobilization post R rotator cuff surgery- lays in bed for >12hrs/day CXR 10/18/16: Segmental left lower lobe infiltrate, with small reactive left pleural effusion. Admitted in telemetry, continuous cardiac monitoring, no acute changes noted On Heparin Drip Monitor PTT Oxygen therapy Echo-Normal Pulmonary consult appreciated Discussed with the patient regarding residential anticoagulation, he refused using Enoxaparin and Elliquis. Would like to start warfarin. # Community acquired pneumonia- Left lower lobe Seen in CTA IV Ceftriaxone 1 gm daily (Day 3) IV Azithromycin (Day 2) Sputum culture # Right shoulder pain Likely due to recent rotatory cuff surgery Physical therapy-did well yesterday Duplex of the right extremity done-DVT ruled out # Left leg swelling-DVT ruled out Patient mentioned he had left leg swelling, but now it has resolved. # Hyperlipidemia Continue Simvastatin 40 mg po HS # FEN Not on IV fluids, can tolerate PO Electrolytes to be repeated tomorrow Cholesterol controlled diet # Prophyalxis For DVT-On Heparin Drip For GI- Not indicated # Code Status: Full Code # Dispo: Admitted in Telemetry. Duration of stay unknown. Illness, Investigation and Plan of care explained to the patient. He verbalized understanding. Case seen and discussed with Dr. Singh. Visit type - Emergency Visit Emergency Visit: Yes ED Registration Date: 10/16/16 Care time: The patient presented to the Emergency Department on the above date and was hospitalized for further evaluation of their emergent condition. - New Patient This patient is new to me today: No - Critical Care Critical Care patient: No - Discharge Referral Referred to [facility] Med P.C.: No
[2016-10-18] MEDS: CEFTRIAXONE 50 ML IVPB SCH (09:55)
[2016-10-18] MEDS: HEPARIN INFUSION - 500 ML IVPB SCH ×2 (09:55→17:35)
[2016-10-18] MEDS: HEPARIN NA (PORCINE) 5,000 UNITS/ML 1ML VIAL IVPUSH PRN (09:55)
[2016-10-18] MEDS: AZITHROMYCIN IVPB 250 ML IVPB SCH (10:43)
--- NOTE | 2016-10-18 10:48 | PN ---
Progress Note, Physician History of Present Illness: pulmonary alert,feeling better,less cp,-sob. duplex -dvt,echo - - Current Medication List Current Medications: Active Medications Acetaminophen (Tylenol -) 650 mg PO Q6H PRN PRN Reason: FEVER OR PAIN Last Admin: 10/17/16 21:57 Dose: 650 mg Atorvastatin Calcium (Lipitor -) 20 mg PO HS CHING Last Admin: 10/17/16 21:57 Dose: 20 mg Heparin Sodium (Porcine) (Heparin -) 1,000 unit IVPUSH PRN PRN PRN Reason: Heparin Last Admin: 10/18/16 09:55 Dose: 1,000 unit Heparin Sodium (Porcine) (Heparin -) 5,000 unit IVPUSH PRN PRN PRN Reason: Heparin Last Admin: 10/17/16 11:44 Dose: 5,000 unit Heparin Sodium/Dextrose (Heparin Infusion -) 500 mls @ 20 mls/hr IVPB TITR CHING ; 1,000 UNITS/HR PRN Reason: Protocol Last Admin: 10/18/16 09:55 Dose: 25 mls/hr Ceftriaxone Sodium (Rocephin 1gm Ivpb (Pre-Docked)) 50 mls @ 100 mls/hr IVPB DAILY CHING Last Admin: 10/18/16 09:55 Dose: 100 mls/hr Azithromycin (Zithromax 500mg Ivpb (Pre-Docked)) 250 mls @ 250 mls/hr IVPB DAILY [facility] Last Admin: 10/17/16 11:44 Dose: 250 mls/hr - Objective Vital Signs: Vital Signs Temperature 98 F 10/18/16 09:00 Pulse Rate 100 H 10/18/16 09:31 Respiratory Rate 18 10/18/16 09:00 Blood Pressure 138/86 10/18/16 09:00 O2 Sat by Pulse Oximetry (%) 99 10/18/16 09:31 Constitutional: Yes: Well Nourished, Calm Eyes: Yes: WNL HENT: Yes: WNL Neck: Yes: WNL Cardiovascular: Yes: Regular Rate and Rhythm, S1, S2 Respiratory: Yes: CTA Bilaterally Extremities: Yes: WNL Edema: No Labs: CBC, BMP 10/18/16 05:38 10/18/16 05:38 Problem List - Problems (1) Pulmonary embolus with infarction Code(s): I26.99 - OTHER PULMONARY EMBOLISM WITHOUT ACUTE COR PULMONALE (2) Chest pain Code(s): R07.9 - CHEST PAIN, UNSPECIFIED (3) Dyspnea Code(s): R06.00 - DYSPNEA, UNSPECIFIED Assessment/Plan Assessment/Plan Acute LLL Pulmonary Embolism Pulmonary Infarct r/o Pneumonia Hypercholesterolemia - VTE likely provoked by prolonged immobilization, states he is in bed over 12 hrs/day - started on empiric antibiotics, findings on imaging more likely related to pulmonary infarct as it is the same segment where the clot is located, can d/c antibiotics if pt remains afebrile and with normal WBC - can start oral anticoagulation if no invasive procedures planned, consider NOAC - anticoagulation for minimum 3 months - hypercoagulable work up as outpt DR JOHNSON
[2016-10-18] MEDS: ACETAMINOPHEN 325 MG TABLET (FP) PO PRN ×2 (14:29→22:00)
[2016-10-18 17:05] LABS: INR 1.26 (0.82-1.09); PROTHROMBIN TIME (PATIENT) 13.9 SEC (9.98-11.88)
[2016-10-18] MEDS ORDERED: WARFARIN NA 5 MG TABLET (UD) PO SCH (18:00)
--- NOTE | 2016-10-18 20:48 | PN ---
Teaching Attending Note Name of Resident: Sunshine Crane ATTENDING PHYSICIAN STATEMENT I saw and evaluated the patient. I reviewed the resident's note and discussed the case with the resident. I agree with the resident's findings and plan as documented. SUBJECTIVE: OBJECTIVE: Vital Signs Temperature 98.9 F 10/18/16 18:00 Pulse Rate 73 10/18/16 18:00 Respiratory Rate 18 10/18/16 18:00 Blood Pressure 120/76 10/18/16 18:00 O2 Sat by Pulse Oximetry (%) 99 10/18/16 09:31 CBCD WBC 6.8 K/mm3 (4.0-10.0) 10/18/16 05:38 RBC 4.71 M/mm3 (4.00-5.60) 10/18/16 05:38 Hgb 14.5 GM/dL (11.7-16.9) 10/18/16 05:38 Hct 43.1 % (35.4-49) 10/18/16 05:38 MCV 91.6 fl (80-96) 10/18/16 05:38 MCHC 33.6 g/dl (32.0-35.9) 10/18/16 05:38 RDW 13.2 % (11.9-15.9) 10/18/16 05:38 Plt Count 241 K/MM3 (134-434) 10/18/16 05:38 MPV 7.8 fl (7.5-11.1) 10/18/16 05:38 CMP Sodium 140 mmol/L (136-145) 10/18/16 05:38 Potassium 4.2 mmol/L (3.5-5.1) 10/18/16 05:38 Chloride 100 mmol/L (98-107) 10/18/16 05:38 Carbon Dioxide 29 mmol/L (21-32) 10/18/16 05:38 Anion Gap 11 (8-16) 10/18/16 05:38 BUN 14 mg/dL (7-18) D 10/18/16 05:38 Creatinine 0.9 mg/dL (0.7-1.3) 10/18/16 05:38 Creat Clearance w eGFR > 60 (>60) 10/16/16 12:20 Random Glucose 97 mg/dL (74-106) 10/18/16 05:38 Calcium 9.6 mg/dL (8.5-10.1) 10/18/16 05:38 Total Bilirubin 0.7 mg/dl (0.2-1.0) 10/16/16 12:20 AST 17 U/L (10-42) 10/16/16 12:20 ALT 21 U/L (10-40) 10/16/16 12:20 Alkaline Phosphatase 50 U/L (32-92) 10/16/16 12:20 Total Protein 6.7 g/dl (6.4-8.3) 10/16/16 12:20 Albumin 3.8 g/dl (3.5-5.0) 10/16/16 12:20 CARDIAC ENZYMES Creatine Kinase 42 IU/L (38-174) 10/16/16 12:20 Troponin I < 0.03 ng/ml (0.03-0.50) L 10/16/16 12:20 Current Medications Generic Name Dose Route Start Last Admin Trade Name Freq PRN Reason Stop Dose Admin Acetaminophen 650 mg 10/17/16 14:16 10/18/16 14:29 Tylenol - PO 650 mg Q6H PRN Administration FEVER OR PAIN Atorvastatin Calcium 20 mg 10/16/16 22:00 10/17/16 21:57 Lipitor - PO 20 mg HS CHING Administration Heparin Sodium (Porcine) 1,000 unit 10/16/16 15:30 10/18/16 09:55 Heparin - IVPUSH 1,000 unit PRN PRN Administration Heparin Heparin Sodium (Porcine) 5,000 unit 10/16/16 15:30 10/17/16 11:44 Heparin - IVPUSH 5,000 unit PRN PRN Administration Heparin Heparin Sodium/Dextrose 500 mls @ 20 mls/hr 10/16/16 15:30 10/18/16 17:35 Heparin Infusion - IVPB 27 mls/hr TITR CHING Administration Protocol 1,000 UNITS/HR Ceftriaxone Sodium 50 mls @ 100 mls/hr 10/17/16 10:00 10/18/16 09:55 Rocephin 1gm Ivpb (Pre-Docked) IVPB 100 mls/hr DAILY CHING Administration Azithromycin 250 mls @ 250 mls/hr 10/17/16 10:00 10/18/16 10:43 Zithromax 500mg Ivpb (Pre-Docked) IVPB 250 mls/hr DAILY CHING Administration Warfarin Sodium 5 mg 10/18/16 18:00 10/18/16 17:36 Coumadin - PO 5 mg DAILY@1800 CHING Administration EKG: Sinus tachycardia with S1Q3T3 CTA: Left lower lobe pulmonary embolism/ consolidation ASSESSMENT AND PLAN: 56 yo M with a PMHx of rotator cuff surgery 5 weeks ago, one DVT of L leg possibly 1 year ago, HLD presents with chest pain on L side and pain with inspiration. Patient also endorses head pain when he sneezes, coughs and during deep inspiration. Patient also endorses fever of 100 degrees at home. # Acute PE most likely provoked due to recent surgery where the patient was lying in bed for 12 hrs s/p R rotator cuff surgery; on heparin drip as per protocol continue, duplex of LE, And RUE all negative. Echo. is WNL. Added coumadin, discussed with the patient use of Lovenox . Will give coumadin 5mg tonight. PT/INR daliy. # RUE s/p rotator cuff sx recently # Community acquired pneumonia- Left lower lobe in CTA ;on IV Ceftriaxone 1 gm daily ,will dc Zithromax due to having a local rxn to IV ZITHROMAX 500MG iv # Right shoulder pain DUE TO recent surgery, Physical therapy; US of right UE and lower extremities ordered to r/o DVT # Left leg swelling Duplex ordered of LEs r/o DVT # Hyperlipidemia continue Simvastatin 40 mg po HS # DVT Px: Heparin Drip
[2016-10-18] MEDS: ATORVASTATIN CA 20 MG TABLET (FP) PO SCH (22:00)
[2016-10-19] MEDS: HEPARIN NA (PORCINE) 5,000 UNITS/ML 1ML VIAL IVPUSH PRN (01:21)
[2016-10-19 07:56] LABS: WHITE BLOOD COUNT 5.5 K/mm3 (4.0-10.0)
[2016-10-19 07:57] LABS: MCH 30.8 pg (25.7-33.7); MCHC 33.5 g/dl (32.0-35.9); MEAN CELL VOLUME 91.8 fl (80-96); PLATELET COUNT 252 K/MM3 (134-434)
[2016-10-19 08:10] LABS: INR 1.24 (0.82-1.09); PROTHROMBIN TIME (PATIENT) 13.7 SEC (9.98-11.88)
[2016-10-19 08:13] LABS: CALCIUM 9.4 mg/dL (8.5-10.1); COCKROFT - GAULT 117.8; CREATININE 0.8 mg/dL (0.7-1.3)
[2016-10-19] MEDS: HEPARIN INFUSION - 500 ML IVPB SCH ×3 (09:20→20:31)
[2016-10-19] MEDS: AZITHROMYCIN IVPB 250 ML IVPB SCH (10:32)
--- NOTE | 2016-10-19 10:40 | PN ---
Physical Exam: SUBJECTIVE: Patient seen and examined Patient is feeling better, with no acute distress, his left sided chest pain is getting better. scale of pain 1/10. OBJECTIVE: Vital Signs Temperature 98 F 10/19/16 09:00 Pulse Rate 88 10/19/16 09:00 Respiratory Rate 20 10/19/16 09:00 Blood Pressure 134/80 10/19/16 09:00 O2 Sat by Pulse Oximetry (%) 98 10/18/16 21:00 GENERAL: The patient is awake, alert, and fully oriented, in no acute distress. HEAD: Normal with no signs of trauma. EYES: PERRL, extraocular movements intact, sclera anicteric, conjunctiva clear. No ptosis. ENT: Ears normal, nares patent, oropharynx clear without exudates, moist mucous membranes. NECK: Trachea midline, full range of motion, supple. LUNGS: Breath sounds equal, clear to auscultation bilaterally, no wheezes, no crackles, no accessory muscle use. HEART: Regular rate and rhythm, S1, S2 without murmur, rub or gallop. ABDOMEN: Soft, nontender, nondistended, normoactive bowel sounds, no guarding, no rebound, no hepatosplenomegaly, no masses. EXTREMITIES: 2+ pulses, warm, well-perfused, no edema. RUE in the sling. NEUROLOGICAL: Cranial nerves II through XII grossly intact. Normal speech, gait not observed. PSYCH: Normal mood, normal affect. SKIN: Warm, dry, normal turgor, no rashes or lesions noted CBCD WBC 5.5 K/mm3 (4.0-10.0) 10/19/16 05:42 RBC 4.54 M/mm3 (4.00-5.60) 10/19/16 05:42 Hgb 14.0 GM/dL (11.7-16.9) 10/19/16 05:42 Hct 41.6 % (35.4-49) 10/19/16 05:42 MCV 91.8 fl (80-96) 10/19/16 05:42 MCHC 33.5 g/dl (32.0-35.9) 10/19/16 05:42 RDW 13.0 % (11.9-15.9) 10/19/16 05:42 Plt Count 252 K/MM3 (134-434) 10/19/16 05:42 MPV 8.0 fl (7.5-11.1) 10/19/16 05:42 CMP Sodium 140 mmol/L (136-145) 10/19/16 05:42 Potassium 4.2 mmol/L (3.5-5.1) 10/19/16 05:42 Chloride 101 mmol/L (98-107) 10/19/16 05:42 Carbon Dioxide 28 mmol/L (21-32) 10/19/16 05:42 Anion Gap 11 (8-16) 10/19/16 05:42 BUN 12 mg/dL (7-18) 10/19/16 05:42 Creatinine 0.8 mg/dL (0.7-1.3) 10/19/16 05:42 Creat Clearance w eGFR > 60 (>60) 10/16/16 12:20 Random Glucose 94 mg/dL (74-106) 10/19/16 05:42 Calcium 9.4 mg/dL (8.5-10.1) 10/19/16 05:42 Total Bilirubin 0.7 mg/dl (0.2-1.0) 10/16/16 12:20 AST 17 U/L (10-42) 10/16/16 12:20 ALT 21 U/L (10-40) 10/16/16 12:20 Alkaline Phosphatase 50 U/L (32-92) 10/16/16 12:20 Total Protein 6.7 g/dl (6.4-8.3) 10/16/16 12:20 Albumin 3.8 g/dl (3.5-5.0) 10/16/16 12:20 CARDIAC ENZYMES Creatine Kinase 42 IU/L (38-174) 10/16/16 12:20 Troponin I < 0.03 ng/ml (0.03-0.50) L 10/16/16 12:20 Active Medications Generic Name Dose Route Start Last Admin Trade Name Freq PRN Reason Stop Dose Admin Acetaminophen 650 mg 10/17/16 14:16 10/18/16 22:00 Tylenol - PO 650 mg Q6H PRN Administration FEVER OR PAIN Atorvastatin Calcium 20 mg 10/16/16 22:00 10/18/16 22:00 Lipitor - PO 20 mg HS CHING Administration Heparin Sodium (Porcine) 1,000 unit 10/16/16 15:30 10/19/16 01:21 Heparin - IVPUSH 1,000 unit PRN PRN Administration Heparin Heparin Sodium (Porcine) 5,000 unit 10/16/16 15:30 10/17/16 11:44 Heparin - IVPUSH 5,000 unit PRN PRN Administration Heparin Heparin Sodium/Dextrose 500 mls @ 20 mls/hr 10/16/16 15:30 10/19/16 09:20 Heparin Infusion - IVPB 28 mls/hr TITR CHING Administration Protocol 1,000 UNITS/HR Ceftriaxone Sodium 50 mls @ 100 mls/hr 10/17/16 10:00 10/18/16 09:55 Rocephin 1gm Ivpb (Pre-Docked) IVPB 100 mls/hr DAILY CHING Administration Warfarin Sodium 7.5 mg 10/19/16 18:00 Coumadin - PO 10/19/16 18:01 ONCE@1800 ONE Home Medications Medication Instructions Recorded Brimonidine Tartrate [Alphagan 1 drop OS BID 09/10/16 0.15% -] Dorzolamide HCl/Timolol Maleat 1 drop OS BID 09/10/16 [Cosopt Eye Drops] Simvastatin [Zocor -] 40 mg PO HS 09/10/16 EKG: Sinus tachycardia with S1Q3T3 CTA: Left lower lobe pulmonary embolism/ consolidation ASSESSMENT AND PLAN: 56 yo M with a PMHx of rotator cuff surgery 5 weeks ago, one DVT of L leg possibly 1 year ago, HLD presents with chest pain on L side and pain with inspiration. Patient also endorses head pain when he sneezes, coughs and during deep inspiration. Patient also endorses fever of 100 degrees at home. # Acute PE most likely provoked due to recent surgery where the patient was lying in bed for 12 hrs s/p R rotator cuff surgery; on heparin drip as per protocol continue for now, discussed with regarding use of NoAc Eliquis, Discussed with patient explained the risk that has high risk for GI bleed, at the bed side. will start the patient on Eliquis tonight. duplex of LE , And RUE all negative. Echo. is WNL. will start the patient on Eliquis and the patient agreed to the risk. will call the pharmacy and make sure that covers the medication. # RUE s/p rotator cuff sx recently # Community acquired pneumonia- Left lower lobe in CTA ;on IV Ceftriaxone 1 gm daily will continue, will dc Zithromax due to having a local rxn to IV ZITHROMAX 500MG iv # Right shoulder pain DUE TO recent surgery, Physical therapy; US of right UE and lower extremities ordered to r/o DVT # Left leg swelling Duplex ordered of LEs r/o DVT # Hyperlipidemia continue Simvastatin 40 mg po HS # DVT Px: Heparin Drip Visit type - Emergency Visit Emergency Visit: Yes ED Registration Date: 10/16/16 Care time: The patient presented to the Emergency Department on the above date and was hospitalized for further evaluation of their emergent condition. - New Patient This patient is new to me today: No - Critical Care Critical Care patient: No
[2016-10-19] MEDS: CEFTRIAXONE 50 ML IVPB SCH (10:42)
--- NOTE | 2016-10-19 13:12 | PN ---
Progress Note (short form) - Note Progress Note: PULMONARY Breathing better, chest pain resolving. Last Vital Signs Temp Pulse Resp BP Pulse Ox 98 F 88 20 134/80 98 10/19/16 09:00 10/19/16 09:00 10/19/16 09:00 10/19/16 09:00 10/18/16 21:00 Gen: NAD at rest Heart: RRR Lung: decreased breath sounds at the bases Abd: soft, nontender Ext: no edema CBC, BMP 10/19/16 05:42 10/19/16 05:42 Active Medications Acetaminophen (Tylenol -) 650 mg PO Q6H PRN PRN Reason: FEVER OR PAIN Last Admin: 10/18/16 22:00 Dose: 650 mg Atorvastatin Calcium (Lipitor -) 20 mg PO HS CHING Last Admin: 10/18/16 22:00 Dose: 20 mg Heparin Sodium (Porcine) (Heparin -) 1,000 unit IVPUSH PRN PRN PRN Reason: Heparin Last Admin: 10/19/16 01:21 Dose: 1,000 unit Heparin Sodium (Porcine) (Heparin -) 5,000 unit IVPUSH PRN PRN PRN Reason: Heparin Last Admin: 10/17/16 11:44 Dose: 5,000 unit Heparin Sodium/Dextrose (Heparin Infusion -) 500 mls @ 20 mls/hr IVPB TITR CHING ; 1,000 UNITS/HR PRN Reason: Protocol Last Admin: 10/19/16 11:28 Dose: 28 mls/hr Ceftriaxone Sodium (Rocephin 1gm Ivpb (Pre-Docked)) 50 mls @ 100 mls/hr IVPB DAILY CHING Last Admin: 10/19/16 10:42 Dose: 100 mls/hr Warfarin Sodium (Coumadin -) 7.5 mg PO ONCE@1800 ONE Stop: 10/19/16 18:01 A/P Acute LLL Pulmonary Embolism Pulmonary Infarct r/o Pneumonia Hypercholesterolemia - VTE likely provoked by prolonged immobilization, states he is in bed over 12 hrs/day - continue anticoagulation, pt prefers a NOAC so will start eliquis tonight - started on empiric antibiotics, findings on imaging more likely related to pulmonary infarct as it is the same segment where the clot is located, can d/c antibiotics if pt remains afebrile and with normal WBC - will need anticoagulation for minimum 3 months - hypercoagulable work up as outpt - will need outpt f/u of chest imaging to ensure resolution of infiltrate
[2016-10-19] MEDS ORDERED: WARFARIN NA 7.5 MG TABLET (FP) PO ONE (18:00)
[2016-10-19] MEDS: ATORVASTATIN CA 20 MG TABLET (FP) PO SCH (21:45)
[2016-10-19] MEDS: APIXABAN 5 MG TABLET PO SCH (21:45)
[2016-10-20] MEDS: ACETAMINOPHEN 325 MG TABLET (FP) PO PRN (01:07)
[2016-10-20 07:21] LABS: BASOPHIL 0.7 % (0-2.0); EOSINOPHIL 1.7 % (0-4.5); MCH 30.7 pg (25.7-33.7); MCHC 33.5 g/dl (32.0-35.9); MEAN CELL VOLUME 91.7 fl (80-96); MEAN PLT VOLUME 7.9 fl (7.5-11.1); NEUTROPHILS 55.7 % (42.8-82.8); PLATELET COUNT 272 K/MM3 (134-434); WHITE BLOOD COUNT 5.1 K/mm3 (4.0-10.0)
[2016-10-20 07:42] LABS: INR 1.45 (0.82-1.09); PROTHROMBIN TIME (PATIENT) 16.1 SEC (9.98-11.88)
--- NOTE | 2016-10-20 08:12 | PN ---
Progress Note (short form) - Note Progress Note: Patient has no further chest pain, feels comfortable. No Acute distress. No fever or chills, no shortness of breath. Vital Signs Temperature 98.5 F 10/19/16 22:00 Pulse Rate 70 10/20/16 05:52 Respiratory Rate 16 10/20/16 05:52 Blood Pressure 132/78 10/20/16 05:52 O2 Sat by Pulse Oximetry (%) 97 10/19/16 21:00 GENERAL: The patient is awake, alert, and fully oriented, in no acute distress. HEAD: Normal with no signs of trauma. EYES: PERRL, extraocular movements intact, sclera anicteric, conjunctiva clear. ENT: Ears normal, oropharynx clear without exudates, moist mucous membranes. NECK: Trachea midline, full range of motion, supple. LUNGS: Breath sounds equal, clear to auscultation bilaterally, no wheezes, no crackles, no accessory muscle use. HEART: Regular rate and rhythm, S1, S2 without murmur, rub or gallop. ABDOMEN: Soft, nontender, nondistended, normoactive bowel sounds, no guarding, no rebound, no hepatosplenomegaly, no masses. EXTREMITIES: 2+ pulses, warm, well-perfused, no edema. RUE in the sling. NEUROLOGICAL: Cranial nerves II through XII grossly intact. Normal speech, gait not observed. PSYCH: Normal mood, normal affect. SKIN: Warm, dry, normal turgor, no rashes or lesions noted CBCD WBC 5.1 K/mm3 (4.0-10.0) 10/20/16 05:42 RBC 4.62 M/mm3 (4.00-5.60) 10/20/16 05:42 Hgb 14.2 GM/dL (11.7-16.9) 10/20/16 05:42 Hct 42.4 % (35.4-49) 10/20/16 05:42 MCV 91.7 fl (80-96) 10/20/16 05:42 MCHC 33.5 g/dl (32.0-35.9) 10/20/16 05:42 RDW 13.0 % (11.9-15.9) 10/20/16 05:42 Plt Count 272 K/MM3 (134-434) 10/20/16 05:42 MPV 7.9 fl (7.5-11.1) 10/20/16 05:42 CMP Sodium 140 mmol/L (136-145) 10/19/16 05:42 Potassium 4.2 mmol/L (3.5-5.1) 10/19/16 05:42 Chloride 101 mmol/L (98-107) 10/19/16 05:42 Carbon Dioxide 28 mmol/L (21-32) 10/19/16 05:42 Anion Gap 11 (8-16) 10/19/16 05:42 BUN 12 mg/dL (7-18) 10/19/16 05:42 Creatinine 0.8 mg/dL (0.7-1.3) 10/19/16 05:42 Creat Clearance w eGFR > 60 (>60) 10/16/16 12:20 Random Glucose 94 mg/dL (74-106) 10/19/16 05:42 Calcium 9.4 mg/dL (8.5-10.1) 10/19/16 05:42 Total Bilirubin 0.7 mg/dl (0.2-1.0) 10/16/16 12:20 AST 17 U/L (10-42) 10/16/16 12:20 ALT 21 U/L (10-40) 10/16/16 12:20 Alkaline Phosphatase 50 U/L (32-92) 10/16/16 12:20 Total Protein 6.7 g/dl (6.4-8.3) 10/16/16 12:20 Albumin 3.8 g/dl (3.5-5.0) 10/16/16 12:20 CARDIAC ENZYMES Creatine Kinase 42 IU/L (38-174) 10/16/16 12:20 Troponin I < 0.03 ng/ml (0.03-0.50) L 10/16/16 12:20 Current Medications Generic Name Dose Route Start Last Admin Trade Name Freq PRN Reason Stop Dose Admin Acetaminophen 650 mg 10/17/16 14:16 10/20/16 01:07 Tylenol - PO 650 mg Q6H PRN Administration FEVER OR PAIN Apixaban 10 mg 10/19/16 22:00 10/19/16 21:45 Eliquis - PO 10 mg BID CHING Administration Atorvastatin Calcium 20 mg 10/16/16 22:00 10/19/16 21:45 Lipitor - PO 20 mg HS CHING Administration Ceftriaxone Sodium 50 mls @ 100 mls/hr 10/17/16 10:00 10/19/16 10:42 Rocephin 1gm Ivpb (Pre-Docked) IVPB 100 mls/hr DAILY CHING Administration Home Medications Medication Instructions Recorded Brimonidine Tartrate [Alphagan 1 drop OS BID 09/10/16 0.15% -] Dorzolamide HCl/Timolol Maleat 1 drop OS BID 09/10/16 [Cosopt Eye Drops] Simvastatin [Zocor -] 40 mg PO HS 09/10/16 INR, PTT INR 1.45 (0.82-1.09) H 10/20/16 05:42 EKG: Sinus tachycardia with S1Q3T3 CTA: Left lower lobe pulmonary embolism/ consolidation ASSESSMENT AND PLAN: Patient is a 56 yo M with a PMHx of rotator cuff surgery 5 weeks ago, one DVT of L leg possibly 1 year ago, HLD presents with chest pain on L side and pain with inspiration. Patient also endorses head pain when he sneezes, coughs and during deep inspiration. Patient also endorses fever of 100 degrees at home. # Acute PE provoked due to recent surgery where the patient was lying in bed for 12 hrs s/p R rotator cuff surgery; On Eliquis 10mg x bid x 7 days. s/p heparin drip.Discussed with regarding use of NoAc Eliquis, Discussed with patient explained the risk that has high risk for GI bleed, at the bed side. Duplex of LE, And RUE all negative. Echo. is WNL. Will call the pharmacy and make sure that covers the medication. # RUE s/p rotator cuff sx recently # Community acquired pneumonia- Left lower lobe in CTA ;on IV Ceftriaxone 1 gm daily will continue, will dc Zithromax due to having a local rxn to IV ZITHROMAX 500MG iv. # Right shoulder pain DUE TO recent surgery, Physical therapy; US of right UE and lower extremities ordered to r/o DVT # Left leg swelling Duplex ordered of LEs r/o DVT # Hyperlipidemia continue Simvastatin 40 mg po HS # DVT Px: Eliquis Visit type - Emergency Visit Emergency Visit: Yes ED Registration Date: 10/16/16 Care time: The patient presented to the Emergency Department on the above date and was hospitalized for further evaluation of their emergent condition. - New Patient This patient is new to me today: No - Critical Care Critical Care patient: No
[2016-10-20] MEDS: APIXABAN 5 MG TABLET PO SCH ×2 (09:26→22:06)
[2016-10-20] MEDS: CEFTRIAXONE 50 ML IVPB SCH (09:27)
--- NOTE | 2016-10-20 13:39 | PN ---
Progress Note (short form) - Note Progress Note: PULMONARY Breathing better, no further chest pain. Last Vital Signs Temp Pulse Resp BP Pulse Ox 97.8 F 80 18 145/77 96 10/20/16 10:00 10/20/16 10:00 10/20/16 10:00 10/20/16 10:00 10/20/16 09:00 Gen: NAD at rest Heart: RRR Lung: decreased breath sounds at the bases Abd: soft, nontender Ext: no edema CBC, BMP 10/20/16 05:42 10/19/16 05:42 Active Medications Acetaminophen (Tylenol -) 650 mg PO Q6H PRN PRN Reason: FEVER OR PAIN Last Admin: 10/20/16 01:07 Dose: 650 mg Apixaban (Eliquis -) 10 mg PO BID [facility] Last Admin: 10/20/16 09:26 Dose: 10 mg Atorvastatin Calcium (Lipitor -) 20 mg PO HS [facility] Last Admin: 10/19/16 21:45 Dose: 20 mg Ceftriaxone Sodium (Rocephin 1gm Ivpb (Pre-Docked)) 50 mls @ 100 mls/hr IVPB DAILY [facility] Last Admin: 10/20/16 09:27 Dose: 100 mls/hr A/P Acute LLL Pulmonary Embolism Pulmonary Infarct r/o Pneumonia Hypercholesterolemia - continue eliquis - started on empiric antibiotics, findings on imaging more likely related to pulmonary infarct as it is the same segment where the clot is located, can d/c antibiotics if pt remains afebrile and with normal WBC - will need anticoagulation for minimum 3 months - hypercoagulable work up as outpt - will need outpt f/u of chest imaging to ensure resolution of infiltrate
[2016-10-20] MEDS: ATORVASTATIN CA 20 MG TABLET (FP) PO SCH (22:06)
[2016-10-21 08:29] LABS: MCH 30.8 pg (25.7-33.7); MCHC 33.7 g/dl (32.0-35.9); MEAN CELL VOLUME 91.5 fl (80-96); MEAN PLT VOLUME 7.7 fl (7.5-11.1); PLATELET COUNT 281 K/MM3 (134-434); RDW 12.9 % (11.9-15.9)
[2016-10-21] MEDS: APIXABAN 5 MG TABLET PO SCH (09:12)
[2016-10-21] MEDS: CEFTRIAXONE 50 ML IVPB SCH (09:12)
--- NOTE | 2016-10-21 09:36 | DS ---
Physical Exam: SUBJECTIVE: Patient seen and examined at bed side this morning. Patient mentioned breathing has improved. Right shoulder pain has decreased. Denies chest pain, palpitation, abdominal pain, nausea or vomiting. Bowel/Bladder habit normal. Sleep/Appetite normal. OBJECTIVE: Vital Signs Period Temp Pulse Resp BP Sys/Pascual Pulse Ox Last 24 Hr 97.8 F-99.3 F 79-87 18-20 123-145/77-91 PHYSICAL EXAM GENERAL: The patient is lying in bed comfortably, awake, alert, and fully oriented, in no acute distress. HEAD: Normal with no signs of trauma. EYES: EOM intact, no pallor or icterus. ENT: Ears normal, moist mucous membranes. NECK:Supple. LUNGS: Breath sounds equal, breath sounds decreased on the left >right, no wheezes, no crackles, no accessory muscle use. HEART: Tachycardic, Regular rate and rhythm, S1, S2 without murmur. ABDOMEN: Soft, nontender, nondistended, normoactive bowel sounds, no guarding, no rebound, no hepatosplenomegaly, no masses. UPPER EXTREMITIES: Left: ROM +, 2+ pulses, warm, well-perfused, no edema. Right: Sling in place, range of motion limited, no erythema, non tender, 2+ pulses, warm, well-perfused, no edema. LOWER EXTREMITIES: 2+ pulses, warm, well-perfused, no edema. Lulu's sign negative. NEUROLOGICAL: Bulk/Tone normal, no facial droop, power 5/5, Cranial nerves II through XII grossly intact. Normal speech, gait not observed. PSYCH: Normal mood, normal affect. SKIN: Warm, dry, normal turgor, no rashes or lesions noted LABS Laboratory Results - last 24 hr 10/21/16 10/21/16 06:05 06:05 WBC 6.0 RBC 4.60 Hgb 14.2 Hct 42.1 MCV 91.5 MCHC 33.7 RDW 12.9 Plt Count 281 MPV 7.7 PTT (Actin FS) 35.3 H 10/16/16 CTA: Left lower lobe pulmonary embolism. Left lower lobe consolidation and small pleural effusion. Right basilar atelectasis and trace pleural effusion. 10/17/16 Duplex upper ext artery: Negative for DVT 10/18/16 CXR: Segmental left lower lobe infiltrate with suggestion of small reactive left pleural effusion. HOSPITAL COURSE: Date of Admission:10/16/16 Date of Discharge: 10/21/16 Patient is a 56 year old Male with significant PMH of Hyperlipidemia, questionable DVT in L leg one year ago, glaucoma presented to the ER with L lateral chest wall pain worsened with deep inspiration, laying down. Admitted with the diagnosis of Pulmonary Embolism-likely provoked. History of immobilization post Right rotator cuff surgery- layed in bed for >12hrs/day since the surgery. On admission, EKG showed Sinus tachycardia with S1Q3T3. Patient was admitted in telemetry, continuous cardiac monitoring was done, there were no acute changes noted in the monitor during admission. Patient was treated with Heparin Drip with monitoring of PTT, Oxygen therapy. Echo was done which was normal. Pulmonary was consulted. Discussed with the patient regarding continuous churn buttermaker anticoagulation, he refused using Enoxaparin. Agreed to use Eliquis. Patient has been well explained about the side effects especially bleeding, he verbalized understanding. Eliquis 10mg PO BID x 7 days followed by 5mg PO BID. To continue anticoagulation at least for 3-6months, as per Pulmonary. He has been advised to f/up with Dr. Frances in a week and PCP in a week. Community acquired pneumonia- Left lower lobe. Seen in CTA. Was treated with IV Ceftriaxone. Discharging him on Ceftin 500mg PO BID x 5 more days. Right shoulder pain. Likely due to recent rotatory cuff surgery. Did well with PT. Duplex of the right extremity was done-DVT ruled out Left leg swelling- Patient mentioned he had left leg swelling, but now it has resolved. DVT ruled out. Hyperlipidemia - Continue Simvastatin 40 mg po HS Plan of care explained to the patient. He verbalized understanding. Case seen and discussed with Dr. Singh. Minutes to complete discharge: 45 Discharge Summary Reason For Visit: PULMONARY EMBOLISM LEFT LOWER LOBE Current Active Problems Chest pain (Acute) Dyspnea (Acute) Pulmonary embolus with infarction (Acute) Condition: Improved - Instructions Diet, Activity, Other Instructions: You were admitted with the diagnosis of Pulmonary embolism. As we discussed, please continue taking Eliquis (anticoagulant) 10mg twice a day for 5 more days and then Eliquis 5mg PO twice a day. Please follow up with pulmonary physician in a week. When you take the Eliquis, please be careful as there is a high risk of bleeding if you fall. Continue taking antibiotics Ceftin 500mg PO twice a day x 5 more days for Pneumonia. Please exercise as tolerated and continue the breathing exercise with incentive spirometer. Please f/up with your primary doctor in a week. If your symptoms get worse or if you develop any new symptoms please return to the Emergency Department immediately. Referrals: Theron Frances MD, MD [Staff Physician] - 1 Week Disposition: HOME - Home Medications Comprehensive Discharge Medication List: Ambulatory Orders Brimonidine Tartrate [Alphagan 0.15% -] 1 drop OS BID 09/10/16 Dorzolamide HCl/Timolol Maleat [Cosopt Eye Drops] 1 drop OS BID 09/10/16 Simvastatin [Zocor -] 40 mg PO HS 09/10/16 Apixaban [Eliquis -] 5 mg PO BID #40 tablet 10/21/16 Apixaban [Eliquis -] 10 mg PO BID #10 tablet 10/21/16 Cefuroxime Axetil [Ceftin -] 500 mg PO Q12H #10 tablet 10/21/16 This patient is new to me today: No Emergency Visit: Yes ED Registration Date: 10/16/16 Care time: The patient presented to the Emergency Department on the above date and was hospitalized for further evaluation of their emergent condition. Critical Care patient: No - Discharge Referral Referred to [facility] Med P.C.: No
[2016-10-21 12:07] VITALS: BP 146/83; PULSE 88; TEMP 98
--- NOTE | 2016-10-21 16:36 | PN ---
Teaching Attending Note Name of Resident: Sunshine Crane ATTENDING PHYSICIAN STATEMENT I saw and evaluated the patient. I reviewed the resident's note and discussed the case with the resident. I agree with the resident's findings and plan as documented. SUBJECTIVE: Patient is comfortable with no acute distress. No nausea or vomiting. no headache, no chest pain. OBJECTIVE: Vital Signs Temperature 98 F 10/21/16 10:00 Pulse Rate 88 10/21/16 10:00 Respiratory Rate 22 10/21/16 10:00 Blood Pressure 146/83 10/21/16 10:00 O2 Sat by Pulse Oximetry (%) 95 10/21/16 09:00 CBCD WBC 6.0 K/mm3 (4.0-10.0) 10/21/16 06:05 RBC 4.60 M/mm3 (4.00-5.60) 10/21/16 06:05 Hgb 14.2 GM/dL (11.7-16.9) 10/21/16 06:05 Hct 42.1 % (35.4-49) 10/21/16 06:05 MCV 91.5 fl (80-96) 10/21/16 06:05 MCHC 33.7 g/dl (32.0-35.9) 10/21/16 06:05 RDW 12.9 % (11.9-15.9) 10/21/16 06:05 Plt Count 281 K/MM3 (134-434) 10/21/16 06:05 MPV 7.7 fl (7.5-11.1) 10/21/16 06:05 CMP Sodium 140 mmol/L (136-145) 10/19/16 05:42 Potassium 4.2 mmol/L (3.5-5.1) 10/19/16 05:42 Chloride 101 mmol/L (98-107) 10/19/16 05:42 Carbon Dioxide 28 mmol/L (21-32) 10/19/16 05:42 Anion Gap 11 (8-16) 10/19/16 05:42 BUN 12 mg/dL (7-18) 10/19/16 05:42 Creatinine 0.8 mg/dL (0.7-1.3) 10/19/16 05:42 Creat Clearance w eGFR > 60 (>60) 10/16/16 12:20 Random Glucose 94 mg/dL (74-106) 10/19/16 05:42 Calcium 9.4 mg/dL (8.5-10.1) 10/19/16 05:42 Total Bilirubin 0.7 mg/dl (0.2-1.0) 10/16/16 12:20 AST 17 U/L (10-42) 10/16/16 12:20 ALT 21 U/L (10-40) 10/16/16 12:20 Alkaline Phosphatase 50 U/L (32-92) 10/16/16 12:20 Total Protein 6.7 g/dl (6.4-8.3) 10/16/16 12:20 Albumin 3.8 g/dl (3.5-5.0) 10/16/16 12:20 CARDIAC ENZYMES Creatine Kinase 42 IU/L (38-174) 10/16/16 12:20 Troponin I < 0.03 ng/ml (0.03-0.50) L 10/16/16 12:20 Home Medications Medication Instructions Recorded Brimonidine Tartrate [Alphagan 1 drop OS BID 09/10/16 0.15% -] Dorzolamide HCl/Timolol Maleat 1 drop OS BID 09/10/16 [Cosopt Eye Drops] Simvastatin [Zocor -] 40 mg PO HS 09/10/16 Apixaban [Eliquis -] 5 mg PO BID #40 tablet 10/21/16 Apixaban [Eliquis -] 10 mg PO BID #10 tablet 10/21/16 Cefuroxime Axetil [Ceftin -] 500 mg PO Q12H #10 tablet 10/21/16 CHEST: CTA BL, no wheeze or rales BL, no crackles. ASSESSMENT AND PLAN: Patient is a 56 yo M with a PMHx of rotator cuff surgery 5 weeks ago, one DVT of L leg possibly 1 year ago, HLD presents with chest pain on L side and pain with inspiration. Patient also endorses head pain when he sneezes, coughs and during deep inspiration. Patient also endorses fever of 100 degrees at home. # Acute PE provoked due to recent surgery where the patient was lying in bed for 12 hrs s/p R rotator cuff surgery; On Eliquis 10mg x bid x 7 days. then 5mg po bid, s/p heparin drip. Patient will follow with , Discussed with patient the side effect of Eliquis , explained the risk that has high risk for GI bleed, at the bed side. Duplex of LE, And RUE all negative. Echo. is WNL. Eliquis is covered under his plan. # RUE s/p rotator cuff sx recently # Community acquired pneumonia- Left lower lobe in CTA ;s/p IV Ceftriaxone .will continue with Ceftin x 5 days . # Right shoulder pain DUE TO recent surgery, Physical therapy; US of right UE and lower extremities negative for DVT # Left leg swelling Duplex ordered of LEs negative for DVT # Hyperlipidemia continue Simvastatin 40 mg po HS # DVT Px: Eliquis
== END 2016-10-21 13:19 | disposition home or self-care (01) | DRG 175 ==
LOC: FER 11:52 → J4W 20:25
PROVIDERS: ADMIT Internal Medicine; ATTEND Internal Medicine
DX: I26.99 Other pulmonary embolism without acute cor pulmonale (principal); J18.9 Pneumonia, unspecified organism; E78.5 Hyperlipidemia, unspecified; H40.9 Unspecified glaucoma; M25.511 Pain in right shoulder; M79.89 Other specified soft tissue disorders
CPT/HCPCS: 36415; 36600; 71010-TC; 71020-TC; 71275-TC; 80048; 80053; 82272; 82375; 82550; 82803; 83050; 84484; 85025; 85027; 85610; 85730; 93005; 93306-TC; 93970-TC; 93971; 94010; 97116-GP; 97161-GP; 99284-25; J1644

== ENCOUNTER 2017-10-30 09:21 | Emergency (ER) | payer BC ==
--- NOTE | 2017-10-30 09:35 | PDOC ---
History of Present Illness - General History Source: Patient Exam Limitations: No Limitations - History of Present Illness Initial Comments: 10/30/17 10:59 The patient is a 57 year old male with past medical history of HLD, glaucoma, PE (L. Lung, 10/2016 w/ fluid in the lungs (?)), L. ankle small clot s/p an impact to the foot (1 year prior to the PE) and daily use of baby Aspirin presents to the emergency department with vertigo. The patient reports enroute to work patient experienced an episode of vertigo, states he took an antacid with relief noted. The patient states when he arrived at his office an onset of R. leg weakness manifested, states he felt like he was walking on sponges with bilateral tingling. The patient states during examination he feels the sensation of pins and needles bilaterally but more to the R. leg. The patient reports associated symptom of nausea. The patient states 6 days prior he suffered an injury to the L. foot s/p stepping on a sarah nail, states he was placed on antibiotic and was given a tetanus shot. Denies fever, chills, cough or a headache. Denies vomiting. Denies taking any antibiotics today. Denies diarrhea or constipation. Denies loss of sensation or weakness. Denies dysuria, hematuria, frequency or urgency to urinate. Allergies: NKDA Social history: Denies the use of cigarettes. Social use of alcohol. Denies the use of recreational drugs. Surgical history: Rotator cuff (09/2016) and Bilateral Inguinal Hernia Repair PCP: Dr. Piotr Le <Cyndee Brizuela - Last Filed: 10/30/17 10:59> <Ciara Gunter - Last Filed: 10/30/17 11:10> - General Stated Complaint: LEG PAIN Time Seen by Provider: 10/30/17 09:35 Past History <Cyndee Brizuela - Last Filed: 10/30/17 10:59> - Past Medical History Anemia: No Asthma: No Cancer: No Cardiac Disorders: No CVA: No COPD: No CHF: No Dementia: No Diabetes: No GI Disorders: No Disorders: No HTN: No Hypercholesterolemia: Yes Liver Disease: No Seizures: No Thyroid Disease: No - Surgical History Abdominal Surgery: Yes (Bilateral Inguinal Hernia Repair) Appendectomy: No Cardiac Surgery: No Cholecystectomy: No Lung Surgery: No Neurologic Surgery: No Orthopedic Surgery: No - Suicide/Smoking/Psychosocial Hx Smoking History: Never smoked Hx Alcohol Use: Yes (SOCIALLY) Drug/Substance Use Hx: No Substance Use Type: None Hx Substance Use Treatment: No <Ciara Gunter - Last Filed: 10/30/17 11:10> - Past Medical History Allergies/Adverse Reactions: Allergies Allergy/AdvReac Type Severity Reaction Status Date / Time No Known Allergies Allergy Verified 10/30/17 09:39 Home Medications: Ambulatory Orders Brimonidine Tartrate [Alphagan 0.15% -] 1 drop OS BID 09/10/16 Dorzolamide HCl/Timolol Maleat [Cosopt Eye Drops] 1 drop OS BID 09/10/16 Simvastatin [Zocor -] 40 mg PO HS 09/10/16 Apixaban [Eliquis -] 5 mg PO BID #40 tablet 10/21/16 Apixaban [Eliquis -] 10 mg PO BID #10 tablet 10/21/16 Cefuroxime Axetil [Ceftin -] 500 mg PO Q12H #10 tablet 10/21/16 Review of Systems - Review of Systems Able to Perform ROS?: Yes Comments:: 10/30/17 11:01 GENERAL/CONSTITUTIONAL: No fever or chills. No weakness. HEAD, EYES, EARS, NOSE AND THROAT: No change in vision. No ear pain or discharge. No sore throat. CARDIOVASCULAR: No chest pain or shortness of breath. RESPIRATORY: No cough, wheezing, or hemoptysis. GASTROINTESTINAL: (+) nausea. No vomiting, diarrhea or constipation. GENITOURINARY: No dysuria, frequency, or change in urination. MUSCULOSKELETAL: No joint or muscle swelling or pain. No neck or back pain. SKIN: No rash NEUROLOGIC: (+) Vertigo (resolved). Numbness/tingling to the lower extremity, more to the R. leg. No headache, vertigo, loss of consciousness, or change in strength/sensation. ENDOCRINE: No increased thirst. No abnormal weight change. HEMATOLOGIC/LYMPHATIC: No anemia, easy bleeding, or history of blood clots. ALLERGIC/IMMUNOLOGIC: No hives or skin allergy. <Cyndee Brizuela - Last Filed: 10/30/17 10:59> *Physical Exam - Vital Signs Last Vital Signs Temp Pulse Resp BP Pulse Ox 97.7 F 57 L 22 146/80 100 10/30/17 09:36 10/30/17 09:36 10/30/17 09:36 10/30/17 09:36 10/30/17 09:36 - Physical Exam Comments: 10/30/17 11:02 GENERAL: Awake, alert, and fully oriented, in no acute distress HEAD: No signs of trauma EYES: PERRLA, EOMI, sclera anicteric, conjunctiva clear ENT: Auricles normal inspection, hearing grossly normal, nares patent, oropharynx clear without exudates. Moist mucosa NECK: Normal ROM, supple, no lymphadenopathy, JVD, or masses LUNGS: Breath sounds equal, clear to auscultation bilaterally. No wheezes, and no crackles HEART: Regular rate and rhythm, normal S1 and S2, no murmurs, rubs or gallops ABDOMEN: Soft, nontender, normoactive bowel sounds. No guarding, no rebound. No masses EXTREMITIES: Normal range of motion, no edema. No clubbing or cyanosis. No cords, erythema, or tenderness NEUROLOGICAL: (+) AAO x3. Clear and fluent speech. Upper and lower extremity 5/ 5. Knee flexion, plantar flexion, great toe extension. Light and dull touch intact in the lower extremity. Cranial nerves II through XII grossly intact. Normal speech, normal gait SKIN: Warm, Dry, normal turgor, no rashes or lesions noted. <Cyndee Brizuela - Last Filed: 10/30/17 10:59> ED Treatment Course - LABORATORY CBC & Chemistry Diagram: 10/30/17 10:19 10/30/17 10:19 - ADDITIONAL ORDERS Additional order review: Laboratory Results 10/30/17 10:19 Sodium 140 Potassium 4.0 Chloride 104 Carbon Dioxide 25 Anion Gap 11 BUN 22 H D Creatinine 1.0 D Creat Clearance w eGFR > 60 Random Glucose 97 Calcium 9.5 Total Bilirubin 0.5 AST 23 ALT 33 Alkaline Phosphatase 47 Total Protein 7.1 Albumin 3.8 10/30/17 10:19 RBC 5.10 MCV 91.3 MCHC 33.5 RDW 13.2 MPV 8.5 D Neutrophils % 61.8 Lymphocytes % 23.9 Monocytes % 12.4 H Eosinophils % 1.0 Basophils % 0.9 <Cyndee Brizuela - Last Filed: 10/30/17 10:59> - LABORATORY CBC & Chemistry Diagram: 10/30/17 10:19 10/30/17 10:19 <Ciara Gunter - Last Filed: 10/30/17 11:10> Medical Decision Making - Medical Decision Making 10/30/17 10:46 Pt presents to the ED complaining of the acute onset of R leg numbness and tingling. Completely neurologically intact on exam, including light touch and pin prick sensation. Differential includes electrolyte disturbance, radiculopathy. Will check labs, likely discharge home with referral to PMD if labs are negative. 10/30/17 11:07 Labs are within normal limits. Patient is ambualtory in the ED with a normal gait and reports improvement in his symptoms. Will discharge home. <Ciara Gunter - Last Filed: 10/30/17 11:10> *DC/Admit/Observation/Transfer - Attestations Scribe Attestion: 10/30/17 11:03 Documentation prepared by Cyndee Brizuela, acting as medical detailist for Ciara Gunter MD. <Cyndee Brizuela - Last Filed: 10/30/17 10:59> - Discharge Dispostion Decision to Admit order: No <Ciara Gunter - Last Filed: 10/30/17 11:10> Diagnosis at time of Disposition: Skin sensation disturbance - Discharge Dispostion Disposition: HOME Condition at time of disposition: Good - Referrals Referrals: Piotr Le [Primary Care Provider] - - Patient Instructions Printed Discharge Instructions: DI for Numbness/tingling Additional Instructions: return to the ED for increasing numbness or tingling, weakness of one side of the body or face, confusion, difficulty speaking, other new or worsening symptoms. Make sure that you call your doctor tomorrow for follow up. - Post Discharge Activity
[2017-10-30 09:40] VITALS: TEMP 97.7; BMI 22.4
[2017-10-30 10:34] LABS: BASO % 0.9 % (0-2.0); HEMATOCRIT 46.5 % (35.4-49); HEMOGLOBIN 15.6 GM/dL (11.7-16.9); LYMPH % 23.9 % (8-40); MCH 30.6 pg (25.7-33.7); MCHC 33.5 g/dl (32.0-35.9); MEAN CELL VOLUME 91.3 fl (80-96); MEAN PLT VOLUME 8.5 fl (7.5-11.1); MONO % 12.4 % (3.8-10.2); NEUT % 61.8 % (42.8-82.8); PLATELET COUNT 252 K/MM3 (134-434); RDW 13.2 % (11.9-15.9); WHITE BLOOD COUNT 5.5 K/mm3 (4.0-10.0)
[2017-10-30 10:57] LABS: ALBUMIN 3.8 g/dl (3.4-5.0); ALK PHOS 47 U/L (45-117); ANION GAP 11 (8-16); BILIRUBIN,TOTAL 0.5 mg/dL (0.2-1.0); BLOOD UREA NITROGEN 22 mg/dL (7-18); CALCIUM 9.5 mg/dL (8.5-10.1); CHLORIDE 104 mmol/L (98-107); CO2 25 mmol/L (21-32); GLUCOSE,RANDOM 97 mg/dL (74-106); SGOT/AST 23 U/L (15-37); SGPT/ALT 33 U/L (12-78); SODIUM 140 mmol/L (136-145); TOT PROT 7.1 g/dl (6.4-8.2)
[2017-10-30 12:10] VITALS: BP 129/77; PULSE 60
== END 2017-10-30 11:55 | disposition home or self-care (01) ==
LOC: JER 09:21
DX: R20.2 Paresthesia of skin (principal); E78.5 Hyperlipidemia, unspecified; Z86.711 Personal history of pulmonary embolism; Z79.01 Long term (current) use of anticoagulants; Z79.82 Long term (current) use of aspirin
CPT/HCPCS: 36415; 80053; 85025; 99282-25

== ENCOUNTER 2021-03-13 12:36 | Emergency (ER) | payer BC ==
[2021-03-13 12:54] VITALS: TEMP 98.7; BMI 23.7
[2021-03-13 14:10] VITALS: BP 149/83; PULSE 53
== END 2021-03-13 14:09 | disposition home or self-care (01) ==
LOC: FER 12:36
DX: S86.911A Strain of unspecified muscle(s) and tendon(s) at lower leg level, right leg, initial encounter (principal); X50.0XXA Overexertion from strenuous movement or load, initial encounter
CPT/HCPCS: 93971-TC; 99284-25